=== PATIENT | female | born 1990 | race Caucasian/White ===

== ENCOUNTER 2018-03-22 08:16 | Day surgery (SDC) | payer OTHER ==
[~2018-03-22 08:16] MED LIST: HYDROmorphone 2 MG/ML VIAL IV; IOHEXOL 300 MG/ML 100ML VIAL.; LIDOCAINE 1% PF 2 ML VIAL. ID; SURGICEL HEMOSTAT 4X8 EACH.; fentaNYL PF VIAL 100 MCG/2 ML VIAL IV
[2018-03-22] MEDS: IV RINGERS,LACTATED 1000ML 1,000 ML IV (09:09)
[2018-03-22 09:25] LABS: NEG OBC UR NEG; POS OBC UR POS; U PREG PATIENT NEGATIVE (NEG)
[2018-03-22] MEDS ORDERED: FAMOTIDINE 20 MG/2 ML VIAL (09:54)
[2018-03-22] MEDS ORDERED: DEXAMETHASONE SOD PHOS 20 MG/5 ML VIAL. (09:54)
[2018-03-22] MEDS ORDERED: PROPOFOL 20 ML IV (09:54)
[2018-03-22] MEDS ORDERED: ONDANSETRON PF 4 MG/2 ML VIAL. (09:54)
[2018-03-22] MEDS ORDERED: LIDOCAINE 2% PF Vial for OR 5 ML VIAL. (09:54)
[2018-03-22] MEDS ORDERED: fentaNYL PF VIAL 100 MCG/2 ML VIAL (09:55)
[2018-03-22] MEDS ORDERED: MIDAZOLAM HCL/PF 2 MG/2 ML VIAL. (09:55)
[2018-03-22] MEDS ORDERED: ROCURONIUM 50 MG/5 ML VIAL. (09:55)
[2018-03-22] MEDS: BUPIVACAINE-EPI 0.25%-1:200000 50 ML VIAL. (10:44)
[2018-03-22] MEDS ORDERED: NEOSTIGMINE METHYLSULFATE 5 MG/5 ML SYRINGE. (11:08)
[2018-03-22] MEDS ORDERED: GLYCOPYRROLATE 1 MG/5 ML VIAL. (11:08)
[2018-03-22] MEDS ORDERED: KETOROLAC 30 MG/ML INJ FOR OR. INJ (11:08)
[2018-03-22] MEDS: PROCHLORPERAZINE 10 MG/2 ML VIAL. IV ×2 (11:32→11:42)
[2018-03-22] MEDS: fentaNYL PF VIAL 100 MCG/2 ML VIAL IV ×2 (11:32→11:42)
[2018-03-22 11:37] LABS: POC GLUCOSE 134 mg/dL (70-99)
[2018-03-22] MEDS: MORPHINE SULFATE 4 MG/ML DISP.SYRIN. IV ×4 (11:53→12:40)
[2018-03-22] MEDS: oxyCODONE/APAP 5/325 1 TAB TABLET PO (12:20)
[2018-03-22] MEDS ORDERED: DESFLURANE 31 TO 60 MINUTES IH (14:12)
== END 2018-03-22 13:31 | disposition home or self-care (01) ==
LOC: SURG 08:16
DX: K81.1 Chronic cholecystitis (principal); E03.9 Hypothyroidism, unspecified; F31.9 Bipolar disorder, unspecified; F60.3 Borderline personality disorder; J45.909 Unspecified asthma, uncomplicated; E66.9 Obesity, unspecified; Z68.42 Body mass index [BMI] 45.0-49.9, adult; E11.9 Type 2 diabetes mellitus without complications; F43.10 Post-traumatic stress disorder, unspecified; F41.9 Anxiety disorder, unspecified; Z79.899 Other long term (current) drug therapy; Z98.890 Other specified postprocedural states; Z83.42 Family history of familial hypercholesterolemia; Z88.2 Allergy status to sulfonamides; Z88.0 Allergy status to penicillin; Z88.1 Allergy status to other antibiotic agents; Z88.8 Allergy status to other drugs, medicaments and biological substances; Z87.19 Personal history of other diseases of the digestive system; Z79.84 Long term (current) use of oral hypoglycemic drugs; Z87.891 Personal history of nicotine dependence
CPT/HCPCS: 47562; 81025; 82962; A7015; J0780; J1100; J1885; J1956; J2250; J2270; J2405; J2704; J2710; J3010; J3490; J7030; Q9967; S0028

== ENCOUNTER 2019-11-07 05:53 | Day surgery (SDC) | payer OTHER ==
[~2019-11-07] VITALS: Ht 170.2 cm; Wt 100.0 kg
[~2019-11-07 05:53] MED LIST changes: +ALBU2.5V8 INH; +ARIP300S IM; +CIME200T6 PO; +EPIPEN 2-P0.3 MG/0.3 IJ; +ESCITALOPRAM OX10 MG PO; +ETON1VAG VG; +FAMO40TA57 PO; +HYDR25TA PO; -HYDROmorphone 2 MG/ML VIAL IV; +IBUP-1060 PO; -IOHEXOL 300 MG/ML 100ML VIAL.; +LEVO50TA PO; -LIDOCAINE 1% PF 2 ML VIAL. ID; +METH-38 PO; +MIRT30TA2 PO; +NORG1TAB6 PO; +OXCA600T3 PO; +OXYC1TAB15 PO; +QUET100T4 PO; +RANI-376 PO; -SURGICEL HEMOSTAT 4X8 EACH.; +TOPI100T42 PO; -fentaNYL PF VIAL 100 MCG/2 ML VIAL IV
[2019-11-07] MEDS ORDERED: LIDOCAINE 2% PF 5 ML VIAL. ONE (06:29)
[2019-11-07] MEDS ORDERED: PROPOFOL 20 ML IV ONE (06:29)
[2019-11-07] MEDS ORDERED: ONDANSETRON PF 4 MG/2 ML VIAL. ONE (06:30)
[2019-11-07] MEDS ORDERED: ROCURONIUM 50 MG/5 ML VIAL. ONE ×2 (06:30→07:37)
[2019-11-07] MEDS ORDERED: DEXAMETHASONE SOD PHOS 4 MG/ML VIAL ONE (06:30)
[2019-11-07] MEDS ORDERED: fentaNYL PF VIAL 100 MCG/2 ML VIAL IV PRN ×2 (07:00)
[2019-11-07] MEDS ORDERED: HYDROmorphone 2 MG/ML VIAL IV PRN (07:00)
[2019-11-07] MEDS ORDERED: ceFAZolin 2GM PREMIX 2 GM/50 ML BAG IV ONE (07:00)
[2019-11-07] MEDS ORDERED: PROCHLORPERAZINE 10 MG/2 ML VIAL. IV PRN (07:00)
[2019-11-07] MEDS ORDERED: ONDANSETRON PF 4 MG/2 ML VIAL. IV PRN (07:00)
[2019-11-07] MEDS ORDERED: IV RINGERS,LACTATED 1000ML 1,000 ML IV SCH (07:00)
[2019-11-07] MEDS ORDERED: SURGICEL HEMOSTAT 4X8 EACH. ONE (07:33)
[2019-11-07] MEDS ORDERED: fentaNYL PF VIAL 250 MCG/5 ML VIAL ONE (07:38)
[2019-11-07] MEDS ORDERED: MIDAZOLAM HCL/PF 2 MG/2 ML VIAL. ONE (07:38)
[2019-11-07] MEDS ORDERED: BUPIVACAINE-EPI 0.25%-1:200000 MPF 30 ML VIAL. INJ ONE (08:00)
[2019-11-07] MEDS ORDERED: NEOSTIGMINE METHYLSULFATE 5 MG/5 ML SYRINGE. ONE (08:43)
[2019-11-07] MEDS ORDERED: GLYCOPYRROLATE 1 MG/5 ML VIAL. ONE (08:43)
--- NOTE | 2019-11-07 09:00 | PDOC ---
BRIEF OPERATIVE NOTE Date: Nov 07, 2019 Pre-Op Diagnosis LANDON Cyst Post-Op Diagnosis Same Procedure Performed [facility] Cystectomy Surgeon Dr. Duenas Anesthesia Type: General Blood Loss 5 ml Specimens Obtained LANDON cyst wall Findings LANDON cyst 5 cm size, nml uterus, nml Left fallopian tube Complications none Operative Note see dictation JOSUÉ DUENAS Jr, MD Nov 07, 2019 09:00
--- NOTE | 2019-11-07 09:02 | DISCH ---
DISCHARGE INSTRUCTIONS Condition on Discharge Condition on Discharge: Stable Activity After Discharge Activity Instructions for Disc: Activity as tolerated Lifting Instructions after Dis: No heavy lifting Driving Instructions after Dis: Do not drive today Diet after Discharge Diet after Discharge: Regular Contacting the DRLeo after DC Call your doctor for: Concerns you may have Follow-Up Follow up with: Dr. Duenas in 2 wks JOSUÉ DUENAS Jr, MD Nov 07, 2019 09:02
[2019-11-07] MEDS ORDERED: OXYC1TAB15 PO (09:09)
[2019-11-07] MEDS ORDERED: oxyCODONE/APAP 5/325 1 TAB TABLET PO ONE (09:15)
[2019-11-07] MEDS: MORPHINE SULFATE 2 MG/ML VIAL. IV PRN ×2 (09:20→09:29)
--- NOTE | 2019-11-07 09:30 | OP ---
DATE OF SURGERY: 11/07/2019 PREOPERATIVE DIAGNOSIS: Left ovarian cyst. POSTOPERATIVE DIAGNOSIS: Left ovarian cyst. PROCEDURE: Laparoscopic left ovarian cystectomy. SURGEON: Vipul Duenas MD ANESTHESIA: GETA. ESTIMATED BLOOD LOSS: 5 mL. COMPLICATIONS: None. FINDINGS: Left ovarian cyst of 5 cm size, normal uterus, normal left fallopian tube. SUMMARY: A 29-year-old female with chronic pelvic pain, left ovarian cyst requiring laparoscopic left ovarian cystectomy. She was counseled on risks, benefits and expectations and voiced clear understanding to proceed. DESCRIPTION OF PROCEDURE: The patient was taken to surgery suite and placed in dorsal lithotomy position. She was prepped with Betadine solution for vaginal prep and ChloraPrep for abdominal prep. After adequate anesthesia, bivalve speculum was placed vaginally. Anterior lip of the cervix was grasped with single tooth tenaculum. Uterine acorn manipulator was then placed. The bivalve speculum was removed. Attention was now placed on abdomen. Small transverse skin incision was made just below the umbilicus with the scalpel. The Veress needle was then placed through the infraumbilical incision site. The abdomen was allowed to insufflate up to 1-1/2 liters CO2 gas. The Veress needle was then removed, 5 mm trocar was placed. Scope was positioned. The uterus was normal size. Left fallopian tube was normal. Left ovary demonstrated 5 cm cyst. Two additional incisions made in left lower quadrant, through which a 5 mm trocar and an 11 mm trocar was placed. With the aid of [place] graspers and the EndoShears, the left ovarian cyst was then incised and the clear fluid drained with suction irrigation. The portion of the left ovarian cyst wall was excised with EndoShears. The remaining ovarian cyst wall was fulgurated with cautery. The area was hemostatic and verified with suction irrigation. The cul-de-sac was irrigated with normal saline. A small amount of normal saline was left in posterior cul-de-sac. The trocars were then removed under direct visualization. The abdomen was allowed to deflate as much as possible with mechanical manipulation. The 11 mm port site was closed at the fascial layer using 2-0 Vicryl suture in a [id number] manner. The three skin incisions were closed at the skin level using 4-0 Vicryl suture in subcuticular manner. A 0.25% Marcaine with epinephrine was injected at each incision site. The uterine acorn manipulator and single tooth tenaculum were removed. The patient tolerated the procedure well and was taken to recovery room in stable condition. Sponge and needle count correct x 3. VIPUL DUENAS MD DR: EROS/carmen JOB#: [id number] / [id number]
[2019-11-07 09:55] VITALS: BP 113/61
--- NOTE | 2019-11-08 19:07 | PATHOLOGY ---
[facility] Accession Number: [id number] . 01 Material submitted: . ovary - LEFT OVARIAN CYST WALL. Modifiers: left, wall . 01 Clinical history: . Left ovarian cyst. . 02 Diagnosis: Ovarian tissue, left ovarian cyst wall: - Focally hemorrhagic luteinized cyst. (JPM:net application architect; 11/08/2019) R 11/08/2019 1608 Local . 02 Comment: There is no evidence of malignancy. (JPM:net application architect; 11/08/2019) . 02 Electronically signed: . Rusty Coffman MD, Pathologist NPI- [id number] . 01 Gross description: . Received in formalin labeled "Maria A Avila, left ovarian cyst" are multiple fragments of syed-white cyst wall measuring in aggregate 3.3 x 2.1 x 0.5 cm. The cyst wall measures 0.2 cm in thickness. No papillary excrescences are identified. Uninvolved ovarian parenchyma is not present. The specimen is entirely submitted in cassettes A1-A2. ([facility]; 11/07/2019) [facility] 11/07/2019 1746 Local . 02 Pathologist provided ICD-10: N83.12 . 02 CPT . 709739 Specimen Comment: A courtesy copy of this report has been sent to [phone] Specimen Comment: [id number] Specimen Comment: Report sent to and Performed at: 01 [facility] [address], [place] [id number] MD Juan R Lynne MD Phone: [phone] Performed at: 02 [facility] [address] [place], [place] [id number] MD Rusty Coffman MD Phone: [phone]
== END 2019-11-07 10:15 | disposition home or self-care (01) ==
LOC: SURG 05:53
PROVIDERS: ATTEND Obstetrics & Gynecology
DX: N83.202 Unspecified ovarian cyst, left side (principal); N83.02 Follicular cyst of left ovary; G43.909 Migraine, unspecified, not intractable, without status migrainosus; J45.909 Unspecified asthma, uncomplicated; F31.9 Bipolar disorder, unspecified; E66.8 Other obesity; Z68.34 Body mass index [BMI] 34.0-34.9, adult; Z79.899 Other long term (current) drug therapy; Z90.721 Acquired absence of ovaries, unilateral
CPT/HCPCS: 58662; 82962; A7015; J0696; J1100; J2001; J2250; J2270; J2405; J2704; J2710; J3010; J3490; J7030; J7120; 88305

== ENCOUNTER → 2019-11-14 | Outpatient (CLI) | payer OTHER ==
[2019-11-07 09:55] VITALS: BP 113/61
--- NOTE | 2019-11-14 08:51 | KCIC ---
BRAIN W/O CONTRAST Date: 11/14/2019 8:00 AM Indication: Migraines, staring spells Comparison: None. Technique: Multiplanar multisequence MRI of the brain was performed without intravenous contrast using the standard protocol. Findings: No acute infarct. No acute or chronic hemorrhage. The ventricles are normal in size and configuration without hydrocephalus. Mild scattered FLAIR hyperintensities in the subcortical and periventricular deep white matter. Hippocampi are normal in signal and morphology. No hogan matter heterotopia or cortical dysplasia. No evidence of arterial venous malformation or cavernoma. The scalp and calvarium are normal. Partial empty sella. No Chiari malformation. The visualized upper cervical spine is normal. The visualized orbits and globes are normal. The visualized paranasal sinuses are clear. The mastoid air cells are clear. Normal flow voids within the vertebral, basilar, and internal carotid arteries indicating patency. IMPRESSION: 1. No acute infarct, hemorrhage, mass, or hydrocephalus. 2. Mild scattered FLAIR hyperintensities in the subcortical and periventricular deep white matter, a nonspecific finding which can be seen with chronic small vessel ischemic disease, sequela of chronic migraines, demyelinating disease, drug toxicity, prior infection (Lyme disease), prior injury, or vasculitis. Electronically signed by: Shawn Mars MD (11/14/2019 8:48 AM) [facility]
== END | disposition home or self-care (01) ==
LOC: KCIC MRI 07:40
PROVIDERS: ATTEND Psychiatry & Neurology Neurology
DX: G43.109 Migraine with aura, not intractable, without status migrainosus (principal); R40.4 Transient alteration of awareness; Z90.49 Acquired absence of other specified parts of digestive tract
CPT/HCPCS: 70551

== ENCOUNTER 2020-09-15 21:10 | Emergency (ER) | payer OTHER ==
[~2020-09-15] VITALS: Ht 170.2 cm; Wt 77.3 kg
[2020-09-15] MEDS ORDERED: IV NORMAL SALINE 1000ML BAG 1,000 ML IV SCH (21:12)
[2020-09-15 21:27] LABS: BASO % 1 % (0-3); EOS # 0.1 x10^3/uL (0.0-0.7); EOS % 2 % (0-3); HEMOGLOBIN 12.8 g/dL (12.0-15.5); LYMPH # 2.8 x10^3/uL (1.0-4.8); LYMPH % 38 % (24-48); MEAN CORPUSCULAR HEMOGLOBIN 32 pg (25-35); MEAN CORPUSCULAR HGB CONC 34 g/dL (31-37); MEAN CORPUSCULAR VOLUME 96 fL (79-100); MONO # 0.7 x10^3/uL (0.0-1.1); MONO % 10 % (0-9); NEUT # 3.6 x10^3/uL (1.8-7.7); NEUT % 50 % (31-73); PLATELET COUNT 312 x10^3/uL (140-400); RED BLOOD COUNT 3.95 x10^6/uL (3.50-5.40); RED CELL DISTRIBUTION WIDTH 13.3 % (11.5-14.5); WHITE BLOOD COUNT 7.2 x10^3/uL (4.0-11.0)
--- NOTE | 2020-09-15 21:33 | PHYS DOC ---
General Adult EDM: Chief Complaint: ABDOMINAL PAIN HPI: HPI: Patient is a 30 year old female who presents with the last 3 or 4 days with sternal, epigastric pain, sharp shooting mid lower abdominal pain that radiates to her bilateral lower back and bilateral side pain with movement. Currently rates her pain 8 out of 10. States she has been vomiting today x5. Patient is taking no medications for symptoms. She has a history of ovarian cyst, biliary dyskinesia, gastric bypass, DM II. Review of Systems: Review of Systems: Constitutional: Denies fever or chills. [] Eyes: Denies change in visual acuity. [] HENT: Denies nasal congestion or sore throat. [] Respiratory: Denies cough or shortness of breath. [] Cardiovascular: + Sternal chest pain or denies edema. [] GI: +Epigastric and lower mid abdominal pain, +nausea, +vomiting, denies bloody stools or diarrhea. [] : Denies dysuria. [] Musculoskeletal: +Bilateral lower back pain or denies joint pain. [] Integument: Denies rash. [] Neurologic: Denies headache, focal weakness or sensory changes. [] Endocrine: Denies polyuria or polydipsia. [] Lymphatic: Denies swollen glands. [] Psychiatric: Denies depression or anxiety. [] Heart Score: HEART Score for Chest Pain: HEART Score for Chest Pain Response (Comments) Value History Slighlty/Non-Suspicious 0 ECG Normal 0 Age < 45 0 Risk Factors No Risk Factors 0 Troponin < Normal Limit 0 Total 0 Risk Factors: Risk Factors: DM, Current or recent (<one month) smoker, HTN, HLP, family history of CAD, obesity. Risk Scores: Score 0 - 3: 2.5% MACE over next 6 weeks - Discharge Home Score 4 - 6: 20.3% MACE over next 6 weeks - Admit for Clinical Observation Score 7 - 10: 72.7% MACE over next 6 weeks - Early Invasive Strategies Current Medications: Current Medications Medications (Trade) Dose Ordered Sig/Colleen Start Time Stop Time Status Last Admin Dose Admin Famotidine (Pepcid Vial) 20 mg 1X ONCE 09/15/20 21:30 09/15/20 21:31 UNV Fentanyl Citrate (Fentanyl 2ml Vial) 50 mcg 1X ONCE 09/15/20 21:30 10/27/20 21:31 UNV Ondansetron HCl (Zofran) 4 mg 1X ONCE 09/15/20 21:30 09/15/20 21:31 UNV Sodium Chloride 1,000 ml @ 1,000 mls/hr Q1H 09/15/20 21:12 09/15/20 22:11 09/15/20 21:24 1,000 MLS/HR Allergies: Allergies: Allergies Coded Allergies Type Severity Reaction Last Updated Verified coconut Allergy Severe Shortness of Air 11/07/19 Yes mushroom Allergy Severe Shortness of Air 11/07/19 Yes Sulfa (Sulfonamide Antibiotics) Allergy Intermediate Hives 11/07/19 Yes yellow dye Allergy Intermediate Rash 11/07/19 Yes Uncoded Allergies Type Severity Reaction Last Updated Verified SOME BBQ SAUCES Allergy Severe Anaphylaxis 11/07/19 Physical Exam: PE: Constitutional: Well developed, well nourished, no acute distress, non-toxic appearance. [] HENT: Normocephalic, atraumatic, bilateral external ears normal, oropharynx moist, no oral exudates, nose normal. [] Eyes: PERRLA, EOMI, conjunctiva normal, no discharge. [] Neck: Normal range of motion, no tenderness, supple, no stridor. [] Cardiovascular:Heart rate regular rhythm, no murmur [] Lungs & Thorax: Bilateral breath sounds clear to auscultation [] Abdomen: Bowel sounds normal, soft, low mid tenderness, no masses, no pulsatile masses. [] Skin: Warm, dry, no erythema, no rash. [] Back: No tenderness, no CVA tenderness. [] Extremities: No tenderness, no cyanosis, no clubbing, ROM intact, no edema. [] Neurologic: Alert and oriented X 3, normal motor function, normal sensory function, no focal deficits noted. [] Psychologic: Affect normal, judgement normal, mood normal. [] EKG: EK and read by Dr Lanza as Sinus Rhythm and incomplete RBBB and no STEMI Radiology/Procedures: Radiology/Procedures: [] Impression: [facility] [address] [place], [place] [id number] IMAGING REPORT Signed PATIENT: JOSÉ MANUEL BARRAZA ACCOUNT: [id number] : 1990 LOCATION: ER AGE: 30 SEX: F EXAM STATUS: REG ER ORD. PHYSICIAN: JORGE WOODALL APRN REASON: epigastric, sternal pain, bilateral rib pain PROCEDURE: CHEST PA & LATERAL Study: CR CHEST PA LATERAL Indication: Epigastric, sternal and bilateral rib pain. Comparison: 07/05/2020 Findings: Unremarkable/unchanged cardiomediastinal silhouette and koko. No pneumothorax, lobar consolidation or pleural effusion. No free air seen under the diaphragm. Surgical clips project over the right and left upper quadrants. No newly seen osseous abnormality. Impression: No acute radiographic abnormality of the chest. No significant change from 07/05/2020. Electronically signed by: LEAH BUSCH MD (09/15/2020 10:53 PM) [id number] DICTATED and SIGNED BY: LEAH BUSCH MD DATE: 09/15/20 2253 [facility] [address] [place] [address] IMAGING REPORT Signed PATIENT: JOSÉ MANUEL BARRAZA ACCOUNT: [id number] : 1990 LOCATION: ER AGE: 30 SEX: F EXAM STATUS: REG ER ORD. PHYSICIAN: JORGE WOODALL APRN REASON: n/v/epigastric, lower abd pain PROCEDURE: CT ABD PELV W/ IV CONTRST ONLY Study: CT abdomen/pelvis with intravenous contrast Indication: Nausea, vomiting and epigastric/lower abdominal pain. Comparison: Most recently on 07/05/2020 Technique: Helical CT imaging performed of the abdomen and pelvis after the intravenous administration of 75 cc contrast. Sagittal and coronal reformats were obtained. One or more of the following individualized dose reduction techniques were utilized for this examination: 1. Automated exposure control 2. Adjustment of the mA and/or kV according to patient size 3. Use of iterative reconstruction technique. Findings: No newly seen abnormality at the lower chest. Hepatic steatosis with more localized fatty infiltration along the falciform ligament. Status post cholecystectomy. Mild prominence of the central biliary tree and common duct favored due to reservoir effect. Unremarkable pancreas, spleen, adrenal glands and kidneys. No hydronephrosis. Within normal limits bladder. No discrete uterine abnormality. Heterogeneous hyperdensity at the left adnexa, image 77 series 2, favored a functional cyst such as a corpus luteum. Crescentic hypoattenuation along the left margin of the uterus is favored related to the left ovary and a similar finding was present on 07/05/2020. Collectively no acute abnormality of the reproductive organs. Mild volume well-formed stool burden scattered throughout the colon. No acute abnormality of the colon or appendix. Nonobstructed small bowel. Status post antecolic Manoj-en-Y gastric bypass without complicating features. Unremarkable major vasculature. No lymphadenopathy. No significant volume free fluid or pneumoperitoneum. No newly seen abnormality of the body wall soft tissues. No acute or aggressive osseous process. Mild superior endplate height loss at T12 is no different from the prior. Impression: No acute abnormality throughout the abdomen or pelvis to account for the patient's symptoms. No significant change from 07/05/2020 with chronic observations detailed in the body the report. Electronically signed by: LEAH BUSCH MD (09/15/2020 11:13 PM) [id number] DICTATED and SIGNED BY: LEAH BUSCH MD DATE: 09/15/20 2313 Course & Med Decision Making: Course & Med Decision Making Pertinent Labs and Imaging studies reviewed. (See chart for details) See HPI. Abdomen is soft but tender at low mid abdomen. No CVA tenderness. Lungs are clear to all station all lobes. Speaks in full complete sentences. Ambulatory with a steady gait. Skin pink warm and dry. Vital signs within normal limits. She states a couple months ago she was diagnosed with costochondritis and put on Robaxin muscle relaxer and she states it does help. She denies injury or any heavy lifting. Patient denies constipation or diarrhea, shortness of breath, cough, fever, headache, dizziness, syncope, dysuria symptoms, focal weakness, vision changes, numbness or tingling. Patient states that first this abdominal pain was coming and going but now has been more constant the last couple of days. Patients blood glucose is 59 and she is given milk. Urine shows urinary tract infection. Negative . Blood work unremarkable. Chest x-ray shows no acute findings. [] Dragon Disclaimer: Dragon Disclaimer: This electronic medical record was generated, in whole or in part, using a voice recognition dictation system. Departure Departure Impression: Primary Impression: UTI (urinary tract infection) Qualified Codes: N39.0 - Urinary tract infection, site not specified Disposition: 01 DC HOME SELF CARE/HOMELESS Condition: STABLE Referrals: REENA JOSHI MD (PCP) Patient Instructions: Urinary Tract Infection Additional Instructions: Take medication as prescribed. Drink plenty of fluids. Follow-up with your primary care provider soon as possible. Scripts Hydrocodone/Apap 5-325 (NORCO 5-325 TABLET) 1 Each Tablet 1 TAB PO PRN Q6HRS PRN for PAIN, #8 TAB 0 Refills Prov: JORGE WOODALL PROJECTION PRINTER 09/15/20 Ondansetron (ONDANSETRON ODT) 4 Mg Tab.rapdis 1 TAB PO PRN Q6-8HRS, #16 TAB Prov: JORGE WOODALL PROJECTION PRINTER 09/15/20 Cephalexin (KEFLEX) 500 Mg Capsule 1 CAP PO BID for 7 Days, #14 CAP 0 Refills Prov: JORGE WOODALL PROJECTION PRINTER 09/15/20 JORGE WOODALL APRN Sep 15, 2020 21:33
[2020-09-15 21:35] LABS: CALCIUM 9.2 mg/dL (8.5-10.1); GFR 64.3; PROTHROMBIN TIME PATIENT 13.3 SEC (11.7-14.0)
[2020-09-15 21:40] LABS: ALBUMIN 3.4 g/dL (3.4-5.0); TOTAL BILIRUBIN 0.2 mg/dL (0.2-1.0); TOTAL PROTEIN 6.7 g/dL (6.4-8.2)
[2020-09-15] MEDS ORDERED: fentaNYL PF VIAL 100 MCG/2 ML VIAL IVP ONE ×2 (22:00→23:30)
[2020-09-15] MEDS ORDERED: ONDANSETRON PF 4 MG/2 ML VIAL. IVP ONE (22:00)
[2020-09-15] MEDS ORDERED: FAMOTIDINE 20 MG/2 ML VIAL IVP ONE (22:00)
[2020-09-15 22:28] LABS: BILIRUBIN,URINE SMALL (NEG); CLARITY,URINE CLOUDY; COLOR,URINE YELLOW; NITRITE,URINE NEGATIVE (NEG); PH,URINE 5.5 (<5.0-8.0); PROTEIN,URINE NEGATIVE (NEG-TRACE)
[2020-09-15 22:30] LABS: BACTERIA,URINE MANY /HPF (0-FEW)
[2020-09-15 22:31] LABS: RBC,URINE OCC /HPF (0-2); WBC,URINE 20-40 /HPF (0-4)
[2020-09-15 22:33] LABS: BARBITURATES NEG (NEG); BENZODIAZEPINES NEG (NEG); CANNABINOIDS NEG (NEG); COCAINE NEG (NEG); METHADONE NEG (NEG); OPIATES POS (NEG); PHENCYCLIDINE NEG (NEG)
[2020-09-15 22:35] LABS: AMPHETAMINE/METHAMPHETAMINE NEG (NEG)
[2020-09-15] MEDS ORDERED: IOHEXOL 300 MG/ML 100ML VIAL. ONE (22:36)
[2020-09-15] MEDS ORDERED: CONTRAST GIVEN. MC PRN (22:45)
--- NOTE | 2020-09-15 22:56 | RAD ---
Study: CR CHEST PA LATERAL Indication: Epigastric, sternal and bilateral rib pain. Comparison: 07/05/2020 Findings: Unremarkable/unchanged cardiomediastinal silhouette and koko. No pneumothorax, lobar consolidation or pleural effusion. No free air seen under the diaphragm. Surgical clips project over the right and left upper quadrants. No newly seen osseous abnormality. Impression: No acute radiographic abnormality of the chest. No significant change from 07/05/2020. Electronically signed by: LEAH BUSCH MD (09/15/2020 10:53 PM) [id number]
[2020-09-15] MEDS ORDERED: cefTRIAXone IV Push 1 GM VIAL. IVP ONE (23:00)
[2020-09-15] MEDS ORDERED: IOHEXOL 300 MG/ML 100ML VIAL. IV ONE (23:00)
[2020-09-15] MEDS ORDERED: CEPH-264 PO (23:09)
[2020-09-15] MEDS ORDERED: ONDA4TAB12 PO (23:09)
[2020-09-15 23:13] VITALS: BP 114/56
--- NOTE | 2020-09-15 23:16 | RAD ---
Study: CT abdomen/pelvis with intravenous contrast Indication: Nausea, vomiting and epigastric/lower abdominal pain. Comparison: Most recently on 07/05/2020 Technique: Helical CT imaging performed of the abdomen and pelvis after the intravenous administration of 75 cc contrast. Sagittal and coronal reformats were obtained. One or more of the following individualized dose reduction techniques were utilized for this examination: 1. Automated exposure control 2. Adjustment of the mA and/or kV according to patient size 3. Use of iterative reconstruction technique. Findings: No newly seen abnormality at the lower chest. Hepatic steatosis with more localized fatty infiltration along the falciform ligament. Status post cholecystectomy. Mild prominence of the central biliary tree and common duct favored due to reservoir effect. Unremarkable pancreas, spleen, adrenal glands and kidneys. No hydronephrosis. Within normal limits bladder. No discrete uterine abnormality. Heterogeneous hyperdensity at the left adnexa, image 77 series 2, favored a functional cyst such as a corpus luteum. Crescentic hypoattenuation along the left margin of the uterus is favored related to the left ovary and a similar finding was present on 07/05/2020. Collectively no acute abnormality of the reproductive organs. Mild volume well-formed stool burden scattered throughout the colon. No acute abnormality of the colon or appendix. Nonobstructed small bowel. Status post antecolic Manoj-en-Y gastric bypass without complicating features. Unremarkable major vasculature. No lymphadenopathy. No significant volume free fluid or pneumoperitoneum. No newly seen abnormality of the body wall soft tissues. No acute or aggressive osseous process. Mild superior endplate height loss at T12 is no different from the prior. Impression: No acute abnormality throughout the abdomen or pelvis to account for the patient's symptoms. No significant change from 07/05/2020 with chronic observations detailed in the body the report. Electronically signed by: LEAH BUSCH MD (09/15/2020 11:13 PM) [id number]
[2020-09-15] MEDS ORDERED: HYDR-3164 PO (23:17)
--- NOTE | 2020-09-16 09:34 | EKG ---
[facility] [address] [place] [address] Test Date: 2020-09-15 Test Time: 21:54:49 Pat Name: JOSÉ MANUEL BARRAZA Department: Room: Gender: F Sales Correspondent: : 1990 Requested By: JORGE WOODALL Order Number: [id number] Reading MD: Measurements Intervals [place] Rate: 81 P: 52 [place]: 124 QRS: 19 QRSD: 98 T: 26 QT: 372 QTc: 438 Interpretive Statements SINUS RHYTHM INCOMPLETE RIGHT BUNDLE BRANCH BLOCK QRS(T) CONTOUR ABNORMALITY CONSIDER ANTEROLATERAL MYOCARDIAL DAMAGE POSSIBLY ABNORMAL ECG RI6.01 No previous ECG available for comparison
== END 2020-09-15 23:28 | disposition home or self-care (01) ==
LOC: ER 21:10
DX: N39.0 Urinary tract infection, site not specified (principal); Z88.2 Allergy status to sulfonamides; Z91.018 Allergy to other foods
CPT/HCPCS: 36415; 71046; 74177; 80053; 80307; 81001; 81025; 82962; 83690; 84484; 85025; 85610; 87086; 93005; 96361; 96374; 96375; 99285; J0696; J2405; J3010; J3490; J7030; Q9967

== ENCOUNTER 2020-09-28 03:49 | Emergency (ER) | payer OTHER ==
[~2020-09-28] VITALS: Ht 170.2 cm; Wt 79.5 kg
[~2020-09-28 03:49] MED LIST changes: +CEPH-264 PO; +HYDR-3164 PO; +ONDA4TAB12 PO
--- NOTE | 2020-09-28 03:58 | PHYS DOC ---
Past Medical History Past Medical History: Diabetes-Type II, Other Additional Past Medical Histor: costchondritis, PCOS, PTSD Past Surgical History: Gastric Bypass Additional Past Surgical Histo: ovarian cystectomy x2 Smoking Status: Current Every Day Smoker Alcohol Use: None General Adult EDM: Chief Complaint: SEIZURE HPI: HPI: Patient is a 30 year old female who arrives via EMS with a chief complaint of seizures. Patient states she has got a history of absence seizure's and had about 4 those prior to arrival. Patient states she woke up and then had for staring spells that prompted her to call the ambulance. According EMS the spells lasted a minute and a half. Patient is alert and oriented x4 and denies any episodes for the paramedics. Patient denies any recent illnesses alt leandro she was here a week ago for urinary tract infection. Patient complains of generalized pain but no difficulty breathing. Review of Systems: Review of Systems: Constitutional: Denies fever or chills. [] Eyes: Denies change in visual acuity. [] HENT: Denies nasal congestion or sore throat. [] Respiratory: Denies cough or shortness of breath. [] Cardiovascular: Denies chest pain or edema. [] GI: Denies abdominal pain, nausea, vomiting, bloody stools or diarrhea. [] : Denies dysuria. [] Musculoskeletal: Complains of diffuse myalgias Integument: Denies rash. [] Neurologic: Denies headache, focal weakness or sensory changes. [] Endocrine: Denies polyuria or polydipsia. [] Lymphatic: Denies swollen glands. [] Psychiatric: Denies depression or anxiety. [] Heart Score: Risk Factors: Risk Factors: DM, Current or recent (<one month) smoker, HTN, HLP, family history of CAD, obesity. Risk Scores: Score 0 - 3: 2.5% MACE over next 6 weeks - Discharge Home Score 4 - 6: 20.3% MACE over next 6 weeks - Admit for Clinical Observation Score 7 - 10: 72.7% MACE over next 6 weeks - Early Invasive Strategies Allergies: Allergies: Allergies Coded Allergies Type Severity Reaction Last Updated Verified coconut Allergy Severe Shortness of Air 11/07/19 Yes mushroom Allergy Severe Shortness of Air 11/07/19 Yes Sulfa (Sulfonamide Antibiotics) Allergy Intermediate Hives 11/07/19 Yes yellow dye Allergy Intermediate Rash 11/07/19 Yes Uncoded Allergies Type Severity Reaction Last Updated Verified SOME BBQ SAUCES Allergy Severe Anaphylaxis 11/07/19 Physical Exam: PE: Constitutional: Well developed, well nourished, no acute distress, non-toxic appearance. [] HENT: Normocephalic, atraumatic, bilateral external ears normal, no trismus nose normal. [] Eyes: PERRLA, EOMI, conjunctiva normal, no discharge. [] Neck: Normal range of motion, no tenderness, supple, no stridor. [] Cardiovascular:Heart rate regular rhythm, no murmur [] Lungs & Thorax: Bilateral breath sounds clear to auscultation [] Abdomen: Bowel sounds normal, soft, no tenderness, no masses, no pulsatile masses. [] Skin: Warm, dry, no erythema, no rash. [] Back: No tenderness, no CVA tenderness. [] Extremities: No tenderness, no cyanosis, no clubbing, ROM intact, no edema. [] Neurologic: Alert and oriented X 3, normal motor function, normal sensory function, no focal deficits noted. [] Psychologic: Affect normal, judgement normal, mood normal. [] Current Patient Data: Labs: Laboratory Tests Test 09/28/20 04:04 White Blood Count 5.7 x10^3/uL Red Blood Count 3.29 x10^6/uL Hemoglobin 10.7 g/dL Hematocrit 31.6 % Mean Corpuscular Volume 96 fL Mean Corpuscular Hemoglobin 33 pg Mean Corpuscular Hemoglobin Concent 34 g/dL Red Cell Distribution Width 13.7 % Platelet Count 306 x10^3/uL Neutrophils (%) (Auto) 47 % Lymphocytes (%) (Auto) 41 % Monocytes (%) (Auto) 8 % Eosinophils (%) (Auto) 4 % Basophils (%) (Auto) 0 % Neutrophils # (Auto) 2.7 x10^3/uL Lymphocytes # (Auto) 2.3 x10^3/uL Monocytes # (Auto) 0.5 x10^3/uL Eosinophils # (Auto) 0.2 x10^3/uL Basophils # (Auto) 0.0 x10^3/uL Maternal Serum HCG Beta Subunit 1 mIU/mL Sodium Level 144 mmol/L Potassium Level 3.7 mmol/L Chloride Level 111 mmol/L Carbon Dioxide Level 25 mmol/L Anion Gap 8 Blood Urea Nitrogen 16 mg/dL Creatinine 0.8 mg/dL Estimated GFR (Cockcroft-Gault) 83.1 Glucose Level 88 mg/dL Calcium Level 8.2 mg/dL Vital Signs: Vital Signs Date Time Temp Pulse Resp B/P (MAP) Pulse Ox O2 Delivery O2 Flow Rate FiO2 09/28/20 03:50 98.8 72 20 106/53 (70) 99 Room Air 98.8 EKG: EKG: [] Radiology/Procedures: Radiology/Procedures: [] Course & Med Decision Making: Course & Med Decision Making Pertinent Labs and Imaging studies reviewed. (See chart for details) [] Called into the room for evaluation patient, she was having some fluttering of the eyelids. This lasted just a few seconds. I had several conversations with the patient and her about what medicine she takes she was unable to give it to me other that starts with a p and has not phenytoin phenobarbital. She says her doctors not able to fill her medicines. I instructed her that I will give referral to neurologist for further evaluation and prescribing of her medicines. I do think that she is to be admitted to the hospital this time medically stable for discharge. Dragon Disclaimer: Dragon Disclaimer: This electronic medical record was generated, in whole or in part, using a voice recognition dictation system. Departure Departure Impression: Primary Impression: Seizure Disposition: 01 DC HOME SELF CARE/HOMELESS Referrals: REENA JOSHI MD (PCP) GINA MILLARD MD 2-3 days Patient Instructions: Seizure Disorder, Child, Generalized Tonic-Clonic Additional Instructions: EMERGENCY DEPARTMENT GENERAL DISCHARGE INSTRUCTIONS THANK YOU for coming to [facility] Emergency Department (ED) today and trusting us with your care. We trust that you had a positive experience in our Emergency Department. If you wish to speak to the department Management you can contact the engineering department chair at . YOUR FOLLOW UP INSTRUCTIONS ARE FOLLOWS: Do you have a private doctor? If you do not have a private doctor, please ask for a resource list of physicians or clinics that may be able to assist you with follow up care. The Emergency Physician has interpreted your x-rays. The X-ray specialist will also review them. If there is a change in the findings you will be notified in 48 hours when at all possible. A lab test or lab culture may have been done, your results will be reviewed and you will be notified if you need a change in treatment. ADDITIONAL INSTRUCTIONS AND INFORMATION Your care today has been supervised by a physician who is specially trained in emergency care. Many problems require more than one evaluation for a complete diagnosis and treatment. We recommend that you schedule your follow up appointment as recommended to ensure complete treatment of your illness or injury. If you are unable to obtain follow up care and continue to have a problem, or if your condition worsens we recommend that you return to the ED. We are not able to safely determine your condition over the phone nor are we able to give sound medical advice over the phone. For these safety reasons, if you call for medical advice we will ask you to come to the ED for further evaluation If you have any questions regarding these discharge instructions please call the ED at . SAFETY INFORMATION In the interest of safety, wellness, and injury prevention; we encourage you to wear your seatbelt, if you smoke; quit smoking, and we encourage your family to use protective helmet for bicycling and other sporting events that present an increased risk for head injury. IF YOUR SYMPTOMS WORSEN OR NEW SYMPTOMS DEVELOP, OR YOU HAVE CONCERNS ABOUT YOUR CONDITION; OR IF YOUR CONDITION WORSENS WHILE YOU ARE WAITING FOR YOUR FOLLOW UP APPOINTMENT; EITHER CONTACT YOUR PRIMARY CARE DOCTOR, THE PHYSICIAN WHOSE NAME AND NUMBER YOU WERE GIVEN, OR RETURN TO THE ED IMMEDIATELY. DANITA ZAYAS MD Sep 28, 2020 03:57
[2020-09-28 04:14] LABS: BASO % 0 % (0-3); EOS # 0.2 x10^3/uL (0.0-0.7); EOS % 4 % (0-3); HEMATOCRIT 31.6 % (36.0-47.0); HEMOGLOBIN 10.7 g/dL (12.0-15.5); LYMPH # 2.3 x10^3/uL (1.0-4.8); LYMPH % 41 % (24-48); MEAN CORPUSCULAR HEMOGLOBIN 33 pg (25-35); MEAN CORPUSCULAR HGB CONC 34 g/dL (31-37); MEAN CORPUSCULAR VOLUME 96 fL (79-100); MONO # 0.5 x10^3/uL (0.0-1.1); MONO % 8 % (0-9); NEUT # 2.7 x10^3/uL (1.8-7.7); NEUT % 47 % (31-73); PLATELET COUNT 306 x10^3/uL (140-400); RED BLOOD COUNT 3.29 x10^6/uL (3.50-5.40); RED CELL DISTRIBUTION WIDTH 13.7 % (11.5-14.5); WHITE BLOOD COUNT 5.7 x10^3/uL (4.0-11.0)
[2020-09-28 04:30] LABS: CALCIUM 8.2 mg/dL (8.5-10.1); CREATININE 0.8 mg/dL (0.6-1.0); GFR 83.1; POTASSIUM 3.7 mmol/L (3.5-5.1)
[2020-09-28 05:45] VITALS: BP 101/55
== END 2020-09-28 05:47 | disposition home or self-care (01) ==
LOC: ER 03:49
DX: R56.9 Unspecified convulsions (principal); E11.9 Type 2 diabetes mellitus without complications; F17.200 Nicotine dependence, unspecified, uncomplicated; Z98.890 Other specified postprocedural states; Z88.2 Allergy status to sulfonamides; Z91.018 Allergy to other foods; Z91.040 Latex allergy status
CPT/HCPCS: 36415; 80048; 84702; 85025; 99285

== ENCOUNTER 2020-10-13 22:35 | Emergency (ER) | payer OTHER ==
[~2020-10-13] VITALS: Ht 170.2 cm; Wt 80.0 kg
[2020-10-13] MEDS ORDERED: HYDROcodone/APAP 5/325MG 1 TAB TABLET PO ONE (23:00)
[2020-10-13 23:16] LABS: BASO # 0.1 x10^3/uL (0.0-0.2); BASO % 1 % (0-3); EOS # 0.1 x10^3/uL (0.0-0.7); EOS % 1 % (0-3); HEMATOCRIT 34.6 % (36.0-47.0); HEMOGLOBIN 11.8 g/dL (12.0-15.5); LYMPH % 41 % (24-48); MEAN CORPUSCULAR HEMOGLOBIN 33 pg (25-35); MEAN CORPUSCULAR HGB CONC 34 g/dL (31-37); MEAN CORPUSCULAR VOLUME 95 fL (79-100); MONO # 0.9 x10^3/uL (0.0-1.1); MONO % 9 % (0-9); NEUT # 4.6 x10^3/uL (1.8-7.7); NEUT % 48 % (31-73); PLATELET COUNT 300 x10^3/uL (140-400); RED BLOOD COUNT 3.62 x10^6/uL (3.50-5.40); RED CELL DISTRIBUTION WIDTH 13.5 % (11.5-14.5); WHITE BLOOD COUNT 9.7 x10^3/uL (4.0-11.0)
[2020-10-13 23:23] LABS: CALCIUM 8.8 mg/dL (8.5-10.1); CREATININE 0.6 mg/dL (0.6-1.0); GFR 115.9; POTASSIUM 3.4 mmol/L (3.5-5.1)
[2020-10-13 23:29] LABS: ALBUMIN 3.2 g/dL (3.4-5.0); ALBUMIN/GLOBULIN RATIO 1.1 (1.0-1.7); TOTAL BILIRUBIN 0.2 mg/dL (0.2-1.0); TOTAL PROTEIN 6.1 g/dL (6.4-8.2)
[2020-10-13] MEDS ORDERED: ONDA4TAB7 PO (23:42)
[2020-10-13] MEDS ORDERED: HYDR-3164 PO (23:42)
--- NOTE | 2020-10-13 23:43 | PHYS DOC ---
Past Medical History Past Medical History: Diabetes-Type I, Seizure Additional Past Medical Histor: PCOS Past Surgical History: No Surgical History Additional Past Surgical Histo: ovarian cystectomy x2 Smoking Status: Current Every Day Smoker Alcohol Use: None General Adult EDM: Chief Complaint: SEIZURE HPI: HPI: Patient is a 30 year old male with 1 year history of seizures presents for evaluation after seizure. Approximately 1 year ago patient was diagnosed with absence seizures. She was seen by neurologist who placed her on antiepileptic. Patient states her initial antiepileptic she was allergic to in the second antilipid that she was placed on caused more seizures. Patient states she has not been on any medication since. Patient's last seizure prior to Monday night was 2 weeks ago. At that time patient states she was having seizures daily. Typical seizures patients become silent stares off last 2 to 3 minutes then resolved. Tonight significant other states patient had seizures longer than normal. The first seizure tonight lasted 4 minutes the second lasted approximately 7 minutes. Review of Systems: Review of Systems: Constitutional: Denies fever or chills. [] Eyes: Denies change in visual acuity. [] HENT: Denies nasal congestion or sore throat. [] Respiratory: Denies cough or shortness of breath. [] Cardiovascular: Denies chest pain or edema. [] GI: Denies abdominal pain, nausea, vomiting, bloody stools or diarrhea. [] : Denies dysuria. [] Musculoskeletal: Denies back pain or joint pain. [] Integument: Denies rash. [] Neurologic: Denies headache, focal weakness or sensory changes. [] Endocrine: Denies polyuria or polydipsia. [] Lymphatic: Denies swollen glands. [] Psychiatric: Denies depression or anxiety. [] Heart Score: Risk Factors: Risk Factors: DM, Current or recent (<one month) smoker, HTN, HLP, family history of CAD, obesity. Risk Scores: Score 0 - 3: 2.5% MACE over next 6 weeks - Discharge Home Score 4 - 6: 20.3% MACE over next 6 weeks - Admit for Clinical Observation Score 7 - 10: 72.7% MACE over next 6 weeks - Early Invasive Strategies Current Medications: Current Medications Medications (Trade) Dose Ordered Sig/Colleen Start Time Stop Time Status Last Admin Dose Admin Acetaminophen/ Hydrocodone Bitart (Lortab 5/325) 1 tab 1X ONCE 10/13/20 23:00 10/13/20 23:01 DC 10/13/20 22:57 1 TAB Allergies: Allergies: Allergies Coded Allergies Type Severity Reaction Last Updated Verified coconut Allergy Severe Shortness of Air 11/07/19 Yes mushroom Allergy Severe Shortness of Air 11/07/19 Yes Sulfa (Sulfonamide Antibiotics) Allergy Intermediate Hives 11/07/19 Yes yellow dye Allergy Intermediate Rash 11/07/19 Yes Uncoded Allergies Type Severity Reaction Last Updated Verified SOME BBQ SAUCES Allergy Severe Anaphylaxis 11/07/19 Physical Exam: PE: Constitutional: Well developed, well nourished, no acute distress, non-toxic appearance. [] HENT: Normocephalic, atraumatic, bilateral external ears normal, oropharynx moist, no oral exudates, nose normal. [] Eyes: PERRLA, EOMI, conjunctiva normal, no discharge. [] Neck: Normal range of motion, no tenderness, supple, no stridor. [] Cardiovascular:Heart rate regular rhythm, no murmur [] Lungs & Thorax: Bilateral breath sounds clear to auscultation [] Abdomen: Bowel sounds normal, soft, no tenderness, no masses, no pulsatile masses. [] Skin: Warm, dry, no erythema, no rash. [] Back: No tenderness, no CVA tenderness. [] Extremities: No tenderness, no cyanosis, no clubbing, ROM intact, no edema. [] Neurologic: Alert and oriented X 3, normal motor function, normal sensory function, no focal deficits noted. [] Psychologic: Affect normal, judgement normal, mood normal. [] Current Patient Data: Labs: Laboratory Tests Test 10/13/20 23:05 White Blood Count 9.7 x10^3/uL (4.0-11.0) Red Blood Count 3.62 x10^6/uL (3.50-5.40) Hemoglobin 11.8 g/dL (12.0-15.5) L Hematocrit 34.6 % (36.0-47.0) L Mean Corpuscular Volume 95 fL (79-100) Mean Corpuscular Hemoglobin 33 pg (25-35) Mean Corpuscular Hemoglobin Concent 34 g/dL (31-37) Red Cell Distribution Width 13.5 % (11.5-14.5) Platelet Count 300 x10^3/uL (140-400) Neutrophils (%) (Auto) 48 % (31-73) Lymphocytes (%) (Auto) 41 % (24-48) Monocytes (%) (Auto) 9 % (0-9) Eosinophils (%) (Auto) 1 % (0-3) Basophils (%) (Auto) 1 % (0-3) Neutrophils # (Auto) 4.6 x10^3/uL (1.8-7.7) Lymphocytes # (Auto) 4.0 x10^3/uL (1.0-4.8) Monocytes # (Auto) 0.9 x10^3/uL (0.0-1.1) Eosinophils # (Auto) 0.1 x10^3/uL (0.0-0.7) Basophils # (Auto) 0.1 x10^3/uL (0.0-0.2) Sodium Level 140 mmol/L (136-145) Potassium Level 3.4 mmol/L (3.5-5.1) L Chloride Level 106 mmol/L (98-107) Carbon Dioxide Level 26 mmol/L (21-32) Anion Gap 8 (6-14) Blood Urea Nitrogen 14 mg/dL (7-20) Creatinine 0.6 mg/dL (0.6-1.0) Estimated GFR (Cockcroft-Gault) 115.9 BUN/Creatinine Ratio 23 (6-20) H Glucose Level 98 mg/dL (70-99) Calcium Level 8.8 mg/dL (8.5-10.1) Total Bilirubin 0.2 mg/dL (0.2-1.0) Aspartate Amino Transferase (AST) 18 U/L (15-37) Alanine Aminotransferase (ALT) 30 U/L (14-59) Alkaline Phosphatase 131 U/L (46-116) H Total Protein 6.1 g/dL (6.4-8.2) L Albumin 3.2 g/dL (3.4-5.0) L Albumin/Globulin Ratio 1.1 (1.0-1.7) Laboratory Tests 10/13/20 23:05 Laboratory Tests 10/13/20 23:05 Vital Signs: Vital Signs Date Time Temp Pulse Resp B/P (MAP) Pulse Ox O2 Delivery O2 Flow Rate FiO2 10/13/20 22:57 12 Room Air 10/13/20 22:35 98.2 60 112/62 (79) 99 98.2 EKG: EKG: [] Radiology/Procedures: Radiology/Procedures: [] Course & Med Decision Making: Course & Med Decision Making Pertinent Labs and Imaging studies reviewed. (See chart for details) [] Dragon Disclaimer: Dragon Disclaimer: This electronic medical record was generated, in whole or in part, using a voice recognition dictation system. Departure Departure Impression: Primary Impression: Seizure Disposition: 01 DC HOME SELF CARE/HOMELESS Condition: STABLE Referrals: REENA JOSHI MD (PCP) Patient Instructions: Seizure, Adult Scripts Hydrocodone/Apap 5-325 (NORCO 5-325 TABLET) 1 Each Tablet 1 TAB PO BID, #14 TAB Prov: ADALID FLORES I DO 10/13/20 Ondansetron Hcl (ZOFRAN) 4 Mg Tablet 1 TAB PO Q6HRS, #20 TAB Prov: ADALID FLORES I DO 10/13/20 ADALID FLORES I DO Oct 13, 2020 23:43
[2020-10-13] MEDS ORDERED: ONDANSETRON PF 4 MG/2 ML VIAL. ONE (23:59)
[2020-10-14] MEDS ORDERED: ONDANSETRON ODT 4 MG TAB.RAPDIS. PO ONE (00:30)
[2020-10-14 00:42] VITALS: BP 94/55
--- NOTE | 2020-10-14 03:06 | EKG ---
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
== END 2020-10-14 00:59 | disposition home or self-care (01) ==
LOC: ER 22:35
DX: R56.9 Unspecified convulsions (principal); E10.9 Type 1 diabetes mellitus without complications; F17.200 Nicotine dependence, unspecified, uncomplicated; Z98.890 Other specified postprocedural states; Z88.2 Allergy status to sulfonamides; Z91.018 Allergy to other foods; Z91.040 Latex allergy status; Z88.8 Allergy status to other drugs, medicaments and biological substances
CPT/HCPCS: 36415; 80053; 85025; 93005; 99285

== ENCOUNTER 2021-01-23 20:28 | Emergency (ER) | payer OTHER ==
[~2021-01-23] VITALS: Ht 170.2 cm; Wt 77.3 kg
[~2021-01-23 20:28] MED LIST changes: +ONDA4TAB7 PO
[2021-01-23 20:49] VITALS: BP 126/66
--- NOTE | 2021-01-23 21:11 | ED.ADGEN ---
Past Medical History Past Medical History: Anxiety, Depression, Diabetes-Type I, Seizure Additional Past Medical Histor: PCOS Past Surgical History: Cholecystectomy Additional Past Surgical Histo: ovarian cystectomy x2 Smoking Status: Current Every Day Smoker Alcohol Use: None General Adult EDM: Chief Complaint: UPPER EXTREMITY PAIN HPI: HPI: Patient is a 30 year old female who presents the emergency department with complaints of pain to her left upper back that radiates to her left ribs that began today. She denies any recent heavy lifting, falls, or trauma. Patient states that the pain usually will shoot into her left arm. She denies any chest pain, shortness of breath, diaphoresis, cough, body aches, fatigue, or fever. Patient denies any dysuria, hematuria, or increased urinary frequency. She reports that the pain is worse with palpation and movement. She currently rates pain 6 out of 10 on pain scale, she denies any alleviating factors. Patient denies any concerns of . Review of Systems: Review of Systems: Complete ROS is negative unless otherwise noted in HPI. Current Medications: Current Medications Medications (Trade) Dose Ordered Sig/Colleen Start Time Stop Time Status Last Admin Dose Admin Ketorolac Tromethamine (Toradol 30mg Vial) 30 mg 1X ONCE 01/23/21 21:15 01/23/21 21:16 DC 01/23/21 21:33 30 MG Orphenadrine Citrate (Norflex) 60 mg 1X ONCE 01/23/21 21:15 01/23/21 21:16 DC 01/23/21 21:33 60 MG Allergies: Allergies: Allergies Coded Allergies Type Severity Reaction Last Updated Verified coconut Allergy Severe Shortness of Air 11/07/19 Yes mushroom Allergy Severe Shortness of Air 11/07/19 Yes Sulfa (Sulfonamide Antibiotics) Allergy Intermediate Hives 11/07/19 Yes yellow dye Allergy Intermediate Rash 11/07/19 Yes Uncoded Allergies Type Severity Reaction Last Updated Verified SOME BBQ SAUCES Allergy Severe Anaphylaxis 11/07/19 Physical Exam: PE: See Above Constitutional: Well developed, well nourished, no acute distress, non-toxic appearance. [] HENT: Normocephalic, atraumatic, bilateral external ears normal, nose normal. [] Eyes: PERRLA, EOMI, conjunctiva normal, no discharge. [] Neck: Normal range of motion, supple, nontender to palpation, no stridor. [] Cardiovascular:Heart rate regular rhythm Lungs & Thorax: Respirations even and unlabored, no retractions, no respiratory distress Back: Left trapezius muscle tenderness to palpation, no bony tenderness is, no spinal tenderness or deformity Skin: Warm, dry, no erythema, no rash. [] Extremities: No cyanosis, ROM intact, no edema. [] Neurologic: Alert and oriented X 3, normal motor, normal sensory, no focal deficits noted. [] Psychologic: Affect normal, judgement normal, mood normal. [] Current Patient Data: Labs: Laboratory Tests Test 01/23/21 20:46 POC Urine HCG, Qualitative Hcg negative (Negative) Vital Signs: Vital Signs Date Time Temp Pulse Resp B/P (MAP) Pulse Ox O2 Delivery O2 Flow Rate FiO2 01/23/21 20:49 97.9 91 18 126/66 (86) 99 Room Air 97.9 EKG: EKG: [] Heart Score: C/O Chest Pain: No Risk Scores: Score 0 - 3: 2.5% MACE over next 6 weeks - Discharge Home Score 4 - 6: 20.3% MACE over next 6 weeks - Admit for Clinical Observation Score 7 - 10: 72.7% MACE over next 6 weeks - Early Invasive Strategies Radiology/Procedures: Radiology/Procedures: [] Course & Med Decision Making: Course & Med Decision Making Pertinent Labs and Imaging studies reviewed. (See chart for details) [] Dragon Disclaimer: Dragon Disclaimer: This electronic medical record was generated, in whole or in part, using a voice recognition dictation system. Departure Departure Impression: Primary Impression: Trapezius muscle strain Disposition: 01 DC HOME SELF CARE/HOMELESS Condition: STABLE Referrals: THAIS JOSHI MD (PCP) Patient Instructions: Thoracic Strain, [id number] Additional Instructions: Fill the prescription(s) and use as directed. Apply heat or ice for to sore areas as needed for comfort. Activity as tolerated. Follow up with your primary care doctor this week if symptoms persist, return to the ER if symptoms worsen or you develop a fever. Scripts Naproxen (NAPROXEN) 500 Mg Tablet 1 TAB PO BID for pain for 10 Days, #20 TAB 0 Refills Prov: KAHLIL MADRIGAL APRN 01/23/21 Cyclobenzaprine Hcl (CYCLOBENZAPRINE HCL) 10 Mg Tablet 1 TAB PO TID PRN for MUSCLE PAIN for 10 Days, #30 TAB 0 Refills Prov: KAHLIL MADRIGAL APRN 01/23/21 Problem Qualifiers Primary Impression: Trapezius muscle strain Encounter type: initial encounter Laterality: left Qualified Codes: S46.812A - Strain of other muscles, fascia and tendons at shoulder and upper arm level, left arm, initial encounter KAHLIL MADRIGAL APRN Jan 23, 2021 21:10
[2021-01-23] MEDS ORDERED: KETOROLAC 30 MG/ML VIAL. IM ONE (21:15)
[2021-01-23] MEDS ORDERED: ORPHENADRINE CITRATE 60 MG/2 ML VIAL. IM ONE (21:15)
[2021-01-23] MEDS ORDERED: NAPR-514 PO (21:26)
[2021-01-23] MEDS ORDERED: CYCL10TA2 PO (21:26)
== END 2021-01-23 21:53 | disposition home or self-care (01) ==
LOC: ER 20:28
DX: S29.012A Strain of muscle and tendon of back wall of thorax, initial encounter (principal); E10.9 Type 1 diabetes mellitus without complications; F17.200 Nicotine dependence, unspecified, uncomplicated; Z90.49 Acquired absence of other specified parts of digestive tract; Z88.2 Allergy status to sulfonamides; Z91.041 Radiographic dye allergy status; Z91.018 Allergy to other foods; X58.XXXA Exposure to other specified factors, initial encounter; Y93.89 Activity, other specified; Y92.89 Other specified places as the place of occurrence of the external cause; Y99.8 Other external cause status
CPT/HCPCS: 81025; 96372; 99284; J1885; J2360

== ENCOUNTER 2021-02-28 22:26 | Emergency (ER) | payer OTHER ==
[~2021-02-28] VITALS: Ht 170.2 cm; Wt 77.2 kg
[~2021-02-28 22:26] MED LIST changes: +CYCL10TA2 PO; +NAPR-514 PO
[2021-02-28 23:41] LABS: BILIRUBIN,URINE NEGATIVE (NEG); CLARITY,URINE CLEAR; COLOR,URINE YELLOW; NITRITE,URINE NEGATIVE (NEG); PH,URINE 6.5 (<5.0-8.0); PROTEIN,URINE NEGATIVE (NEG-TRACE)
[2021-02-28 23:52] LABS: BACTERIA,URINE 0 /HPF (0-FEW)
[2021-03-01] MEDS ORDERED: KETOROLAC 30 MG/ML VIAL. IM ONE (01:00)
--- NOTE | 2021-03-01 01:43 | RAD ---
Transvaginal ultrasound pelvis HISTORY: Pelvic pain, negative hCG Transvaginal examination of pelvis performed and multiple static images were obtained. The uterus appears normal. Endometrium is homogeneous measures 8 mm in thickness. The right ovary is not seen consistent with the history of previous removal. The left ovary measures 5.3 x 5.0 x 2.6 cm and has normal blood flow. There are 3 small cysts in the left ovary one measuring 2.6 x 2.4 x 2.1 cm and one measuring 2.1 x 1.5 x 2.2 cm and one measuring 2.4 x 2.1 x 2.2 cm. IMPRESSION: 3 small cysts in the left ovary. No suspicious findings. Electronically signed by: Otilio Gomez III, MD (03/01/2021 1:40 AM) [facility]ENTER[facility]SE ROBERTO
--- NOTE | 2021-03-01 02:14 | PHYS DOC ---
Past Medical History Past Medical History: Anxiety, Depression, Diabetes-Type I, Seizure Additional Past Medical Histor: PCOS Past Surgical History: Cholecystectomy Additional Past Surgical Histo: ovarian cystectomy x2 Smoking Status: Current Every Day Smoker Alcohol Use: None General Adult EDM: Chief Complaint: VAGINAL PROBLEM HPI: HPI: Patient is a 30 year old female presents emergency department with vaginal pain and pressure that has been increasing over the past week. Patient describes a 6 out of 10 constant pain and pressure in her vagina that does not radiate to back or abdomen. Patient is unaware of any traumatic events, introduction of any foreign bodies into her vagina, and denies any change in sexual partners or practice that may have contributed to pain. Patient denies any pain with urination, increased frequency or urgency, or change in urine appearance. Patient denies any fever, chills, nausea, vomiting. Patient's last menstrual period was mid January. Patient denies any recent antibiotic use. Review of Systems: Review of Systems: Constitutional: Denies fever or chills Eyes: Denies redness or eye pain HENT: Denies nasal congestion or sore throat Respiratory: Denies cough or shortness of breath Cardiovascular: Denies chest pain or palpitations GI: Denies abdominal pain, nausea, or vomiting : Complains of vaginal pressure and pain, denies dysuria or hematuria, Musculoskeletal: Denies back pain or joint pain Integument: Denies rash or skin lesions Neurologic: Denies headache, focal weakness or sensory changes Complete systems were reviewed and found to be within normal limits, except as documented in this note. Heart Score: C/O Chest Pain: N/A Family History: Family History: No relevant family history Current Medications: Current Medications Medications (Trade) Dose Ordered Sig/Colleen Start Time Stop Time Status Last Admin Dose Admin Ketorolac Tromethamine (Toradol 30mg Vial) 30 mg 1X ONCE 03/01/21 01:00 03/01/21 01:01 DC 03/01/21 01:15 30 MG Allergies: Allergies: Allergies Coded Allergies Type Severity Reaction Last Updated Verified coconut Allergy Severe Shortness of Air 11/07/19 Yes mushroom Allergy Severe Shortness of Air 11/07/19 Yes Sulfa (Sulfonamide Antibiotics) Allergy Intermediate Hives 11/07/19 Yes yellow dye Allergy Intermediate Rash 11/07/19 Yes Uncoded Allergies Type Severity Reaction Last Updated Verified SOME BBQ SAUCES Allergy Severe Anaphylaxis 11/07/19 Physical Exam: PE: Constitutional: Well developed, well nourished, no acute distress, non-toxic appearance HENT: Normocephalic, atraumatic Eyes: conjunctiva normal, no discharge Neck: Normal range of motion, no tenderness, supple Lungs & Thorax: No respiratory distress, equal chest rise and fall Abdomen: Soft, negative McBurney's, negative Rovsing's, lower bilateral abdominal tenderness, no rebound tenderness Skin: Warm, dry, no erythema, no rash Back: No tenderness, no CVA tenderness Extremities: No tenderness, ROM intact, no edema Neurologic: Alert and oriented X 3, normal motor function, normal sensory function, no focal deficits noted Psychologic: Affect normal, judgment normal : Cervical motion tenderness during pelvic exam, adnexal tenderness bilaterally-right greater than left, white mucus discharge from cervical os during speculum exam, normal-appearing external genitalia Pelvic exam performed with Janie MONTANEZ Current Patient Data: Labs: Laboratory Tests Test 02/28/21 23:29 02/28/21 23:34 Urine Collection Type Unknown Urine Color Yellow Urine Clarity Clear Urine pH 6.5 (<5.0-8.0) Urine Specific [place] 1.020 (1.000-1.030) Urine Protein Negative mg/dL (NEG-TRACE) Urine Glucose (UA) Negative mg/dL (NEG) Urine Ketones (Stick) Negative mg/dL (NEG) Urine Blood Negative (NEG) Urine Nitrite Negative (NEG) Urine Bilirubin Negative (NEG) Urine Urobilinogen Dipstick 1.0 mg/dL (0.2 mg/dL) Urine Leukocyte Esterase Small (NEG) Urine RBC 1-2 /HPF (0-2) Urine WBC 1-4 /HPF (0-4) Urine Squamous Epithelial Cells Few /LPF Urine Bacteria 0 /HPF (0-FEW) Urine Mucus Slight /LPF POC Urine HCG, Qualitative Hcg negative (Negative) Vital Signs: Vital Signs Date Time Temp Pulse Resp B/P (MAP) Pulse Ox O2 Delivery O2 Flow Rate FiO2 02/28/21 23:10 78 20 111/64 (80) 99 Room Air EKG: EKG: [] Radiology/Procedures: Radiology/Procedures: PROCEDURE: TRANSVAGINAL Transvaginal ultrasound pelvis HISTORY: Pelvic pain, negative hCG Transvaginal examination of pelvis performed and multiple static images were obtained. The uterus appears normal. Endometrium is homogeneous measures 8 mm in thickness. The right ovary is not seen consistent with the history of previous removal. The left ovary measures 5.3 x 5.0 x 2.6 cm and has normal blood flow. There are 3 small cysts in the left ovary one measuring 2.6 x 2.4 x 2.1 cm and one measuring 2.1 x 1.5 x 2.2 cm and one measuring 2.4 x 2.1 x 2.2 cm. IMPRESSION: 3 small cysts in the left ovary. No suspicious findings. Electronically signed by: Otilio Gomez III, MD (03/01/2021 1:40 AM) [facility] Course & Med Decision Making: Course & Med Decision Making 30-year-old female presents to emergency department with vaginal pain and pressure. She describes this as a 6 out of 10 pain that is constant for the past week. Patient denies any pain with urination, frequency or urgency, trauma, change in sexual practice or partners. Last menstrual period was mid January. Patient was examined in the emergency department, pelvic ultrasound and UA performed Pelvic exam performed showing cervical motion tenderness, and bilateral adnexal tendernes. Pain medication given. Plan to discharge patient with pain medication. Patient stable for discharge with outpatient follow-up with PCP and [facility]. Discussed findings and plan with patient, who acknowledges understanding and agreement. De Disclaimer: De Disclaimer: This electronic medical record was generated, in whole or in part, using a voice recognition dictation system. Departure Departure Impression: Primary Impression: Pelvic pain Additional Impression: Ovarian cyst, left Disposition: 01 DC HOME SELF CARE/HOMELESS Condition: STABLE Referrals: THAIS JOSHI MD (PCP) JOSUÉ CAMPBELL Jr, MD Patient Instructions: Ovarian Cyst, [id number], Pelvic Pain, Female, [id number] Scripts Hydrocodone Bit/Acetaminophen (HYDROCODONE-APAP 5-325 ) 1 Tab Tablet 0.5-1 TAB PO PRN Q6HRS PRN for PAIN, #10 TAB 0 Refills Prov: ALMAZ FREITAS DO 03/01/21 ALMAZ FREITAS DO Mar 01, 2021 02:14
[2021-03-01 02:59] VITALS: BP 91/55
[2021-03-01] MEDS ORDERED: HYDR-2761 PO (03:16)
== END 2021-03-01 04:35 | disposition home or self-care (01) ==
LOC: ER 22:26
DX: N83.292 Other ovarian cyst, left side (principal); R10.2 Pelvic and perineal pain; F41.9 Anxiety disorder, unspecified; F32.9 Major depressive disorder, single episode, unspecified; E10.9 Type 1 diabetes mellitus without complications; F17.200 Nicotine dependence, unspecified, uncomplicated; Z90.49 Acquired absence of other specified parts of digestive tract; Z98.890 Other specified postprocedural states; Z88.2 Allergy status to sulfonamides; Z91.040 Latex allergy status; Z91.018 Allergy to other foods; Z88.8 Allergy status to other drugs, medicaments and biological substances
CPT/HCPCS: 76830; 81001; 81025; 87086; 87491; 87591; 96372; 99285; J1885; Q0111

== ENCOUNTER → 2021-03-12 | Outpatient (CLI) | payer OTHER ==
[2021-03-01 02:59] VITALS: BP 91/55
[~2021-03-12] MED LIST changes: +HYDR-2761 PO
--- NOTE | 2021-03-13 09:00 | KCIC ---
EXAM: Brain MRI without contrast. HISTORY: Seizures. TECHNIQUE: Multiplanar, multisequence magnetic resonance imaging of the brain was performed without c ontrast. COMPARISON: 11/14/2019 FINDINGS: There is no restricted diffusion to suggest acute or subacute infarction. There is no susce ptibility effect to suggest hemorrhage. There is no mass effect or midline shift. There is no hydroce phalus. There has been no stable change in scattered foci of T2/FLAIR hyperintensity within the cereb ral white matter, allowing for differences in technique. There is stable mild cerebellar tonsillar ectopia extending 4 mm inferior to the foramen magnum. This is not clearly within limits for a Chiari I malformation. The orbits are unremarkable. There is mini mal right mastoid fluid. There are normal flow voids within the cerebral vessels. The paranasal sinus es are clear. The hippocampi demonstrate symmetric size and signal. There is asymmetry in the size of the left grea ter than right temporal horns. However, this likely a normal variant rather than due to left medial t emporal lobe volume loss due to mesial temporal sclerosis. There is no heterotopia or malformation of cortical development. No calvarial lesion is seen. IMPRESSION: 1. No acute intracranial finding. 2. Multiple small scattered focal areas of signal change within the cerebral white matter, not apprec iably changed compared to the prior study with allowing for devices in technique. Given the patient a ge, the differential includes changes due to demyelinating disease. The differential also includes et iologies such as vasculitis, prior infection such as Lyme disease, chronic small vessel disease which is advanced for patient age, as well as changes due to epilepsy. 3. No convincing epileptogenic lesion. There is asymmetry in the size of the left greater than right temporal horns. However, the hippocampi demonstrate symmetric size and signal. There is no convincing mesial temporal sclerosis. Electronically signed by: Lydia Estrada MD (03/13/2021 8:58 AM) [id number]
== END ==
LOC: KCIC MRI 13:47
PROVIDERS: ATTEND Nurse Practitioner Family
DX: R56.9 Unspecified convulsions (principal)
CPT/HCPCS: 70551

== ENCOUNTER 2021-03-29 18:43 | Emergency (ER) | payer OTHER ==
[~2021-03-29] VITALS: Ht 170.2 cm; Wt 77.0 kg
[~2021-03-29 18:43] MED LIST changes: -OXYC1TAB22 PO; -VITAMIN D
--- NOTE | 2021-03-29 21:31 | PHYS DOC ---
Past Medical History Past Medical History: Anxiety, Depression, Diabetes-Type I, Seizure Additional Past Medical Histor: PCOS Past Surgical History: Cholecystectomy Additional Past Surgical Histo: ovarian cystectomy x2 Smoking Status: Current Every Day Smoker Alcohol Use: None General Adult EDM: Chief Complaint: ABDOMINAL PAIN HPI: HPI: Patient is a 30-year-old female presenting via POV for left adnexal pain. Re ports she has known left ovarian cyst problems and is followed with [facility] ZONING ASSISTANT for this. She is pending surgical intervention for removal this upcoming . States her ZONING ASSISTANT has prescribed her PERC 7.5 which she has been taking every 4 hours without improvement of pain. States pain has increased in severity and so she called their office, it was advised she presented to our ER for evaluation and discussion on next steps of management. She has had no fever, no trauma, no lightheadedness or dizziness, no vaginal discharge or bleeding Review of Systems: Review of Systems: Fourteen body systems of review of systems have been reviewed. See HPI for pertinent positives and negative responses, other bearden all other systems are negative, non-pertinent or non-contributory Heart Score: C/O Chest Pain: No Risk Factors: Risk Factors: DM, Current or recent (<one month) smoker, HTN, HLP, family history of CAD, obesity. Risk Scores: Score 0 - 3: 2.5% MACE over next 6 weeks - Discharge Home Score 4 - 6: 20.3% MACE over next 6 weeks - Admit for Clinical Observation Score 7 - 10: 72.7% MACE over next 6 weeks - Early Invasive Strategies Allergies: Allergies: Allergies Coded Allergies Type Severity Reaction Last Updated Verified coconut Allergy Severe Shortness of Air 11/07/19 Yes mushroom Allergy Severe Shortness of Air 11/07/19 Yes Sulfa (Sulfonamide Antibiotics) Allergy Intermediate Hives 11/07/19 Yes yellow dye Allergy Intermediate Rash 11/07/19 Yes Uncoded Allergies Type Severity Reaction Last Updated Verified SOME BBQ SAUCES Allergy Severe Anaphylaxis 11/07/19 Physical Exam: PE: Constitutional: Well developed, well nourished, appears discomfort due to pain, non-toxic appearance. HENT: Normocephalic, atraumatic, bilateral external ears normal, oropharynx moist, no oral exudates, nose normal. Eyes: PERRLA, EOMI, conjunctiva normal, no discharge. Neck: Normal range of motion, no tenderness, supple, no stridor. Cardiovascular: Heart rate regular, sinus rhythm, no murmurs rubs or gallops Lungs & Thorax: Bilateral breath sounds clear to auscultation Abdomen: Bowel sounds normal, soft, left adnexal tenderness with palpation with voluntary guarding present, no rebound, no masses, no pulsatile masses. Nonsurgical abdomen, no peritoneal signs Skin: Warm, dry, no erythema, no rash. Back: No tenderness, no CVA tenderness. Extremities: No tenderness, no cyanosis, no clubbing, ROM intact, no edema. Neurologic: Alert and oriented X 3, grossly normal motor & sensory function, no focal deficits noted. Psychologic: Affect normal, judgement normal, mood normal. Current Patient Data: Labs: Laboratory Tests Test 03/29/21 22:23 03/29/21 22:33 Urine Collection Type Unknown Urine Color Yellow Urine Clarity Cloudy Urine pH 5.5 Urine Specific [place] 1.020 Urine Protein Negative mg/dL Urine Glucose (UA) Negative mg/dL Urine Ketones (Stick) Negative mg/dL Urine Blood Negative Urine Nitrite Negative Urine Bilirubin Negative Urine Urobilinogen Dipstick 1.0 mg/dL Urine Leukocyte Esterase Large Urine RBC 0 /HPF Urine WBC 5-10 /HPF Urine Squamous Epithelial Cells Many /LPF Urine Bacteria Moderate /HPF Urine Mucus Marked /LPF Bedside Urine HCG, Qualitative Hcg negative Vital Signs: Vital Signs Date Time Temp Pulse Resp B/P (MAP) Pulse Ox O2 Delivery O2 Flow Rate FiO2 03/29/21 21:29 98.5 91 12 131/73 (92) 100 Room Air 98.5 Vital Signs Date Time Temp Pulse Resp B/P (MAP) Pulse Ox O2 Delivery O2 Flow Rate FiO2 03/29/21 23:30 72 112/63 (79) 100 Room Air 03/29/21 21:29 98.5 12 98.5 EKG: EKG: [] Radiology/Procedures: Radiology/Procedures: EXAM: Pelvic ultrasound HISTORY: Left ovarian cyst, pelvic pain. COMPARISON: 03/21/2021. FINDINGS: Sonographic evaluation of the pelvis was performed transabdominally and transvaginally. The uterus is anteverted and measures 9.4 x 5.4 x 4.3 cm. The endometrial stripe measures 5 mm. No masses are identified. There is no significant free fluid. The right ovary has been resected by history. The left ovary measures 5.8 x 4.2 x 3.8 cm. It is enlarged by 3 cysts or large follicles. The largest measures 4.1 x 3.7 x 2.9 cm, increased from 3.3 cm previously. There is no solid component. 2 other cystic foci measure 1.8 x 1.4 cm and 1.9 x 1.8 cm, respectively. These are stable to mildly decreased. There is perfusion along the interceding septations. There are no suspicious lesions. IMPRESSION: 1. The largest left ovarian cyst or follicle has increased in size and now measures 4.1 x 3.7 cm. 2 other smaller cysts or follicles on the left have slightly decreased in size. No clear solid component is identified. Electronically signed by: Curt Jiménez MD (03/29/2021 11:58 PM) [facility] Course & Med Decision Making: Course & Med Decision Making Discussed with the patient all findings and diagnostic testing. I discussed most likely diagnosis of symptomatic left ovarian cyst. Patient's ZONING ASSISTANT physician contacted and case reviewed, joint decision was made to increase patient's narcotic strength from Percocet 7.5 to Percocet 10. Extremely short term dose of this will be dispensed and risks versus benefits of excepting this new higher strength medication was discussed with patient. I discussed at length the risks of taking such medications at this strength and importance on monitoring symptoms as overuse could ensue respiratory depression and even , she was amenable and accepted this plan of care. Joint decision among all there was no indication for emergent surgical intervention and that she would proceed as usual for surgery this upcoming . I stressed need for close outpatient follow-up to review today's ER visit. Strict return precautions were also dis cussed at length with good understanding by patient. Patient voiced understanding and agreement with the plan. Patient knows to come back for repeat evaluation if concerning signs or symptoms present prior to outpatient follow- up. Hemodynamically stable, ambulatory and well-appearing at time of disposition. Dragon Disclaimer: Dragon Disclaimer: This electronic medical record was generated, in whole or in part, using a voice recognition dictation system. Departure Departure Impression: Primary Impression: Ovarian cyst, left Disposition: HOME / SELF CARE / HOMELESS Condition: STABLE Referrals: THAIS JOSHI MD (PCP) Additional Instructions: As discussed prior to ER departure, your comprehensive ER work-up was nonconcerning for any emergent or surgical findings. With that said, it was disclosed that your known left ovarian cyst has increased in size versus prior exam. Your case was discussed with your ZONING ASSISTANT physician, it was agreed that t here was no need for hospital admission or emergent surgical fixation. Joint decision was made to increase your pain medication which you have been using at home. This comes with increased risk of dependence, respiratory depression, and potentially as discussed with you at length. Proper consumption of said medication is vital and you were educated on this. If you have any questions or concerns please do not hesitate to contact our ER or call your ZONING ASSISTANT to review how best to take this medication as he will be changing to a new dosing schedule at an increased strength. If any concerning signs or symptoms present prior to outpatient follow-up please do not hesitate to come back for repeat evaluation. It was a pleasure to take care of you and I wish you the best going forward Scripts Oxycodone/Apap 10-325 (PERCOCET 10-325 MG TABLET ) 1 Each Tablet 1 TAB PO PRN Q6HRS PRN for PAIN, #10 TAB 0 Refills Prov: VEDA OGDEN DO 03/30/21 VEDA OGDEN DO March 29, 2021 21:31
[2021-03-29 22:39] LABS: BILIRUBIN,URINE NEGATIVE (NEG); CLARITY,URINE CLOUDY; COLOR,URINE YELLOW; NITRITE,URINE NEGATIVE (NEG); PH,URINE 5.5 (<5.0-8.0); PROTEIN,URINE NEGATIVE (NEG-TRACE)
[2021-03-29 22:47] LABS: BACTERIA,URINE MODERATE /HPF (0-FEW); RBC,URINE 0 /HPF (0-2)
[2021-03-29 23:30] VITALS: BP 112/63
--- NOTE | 2021-03-30 | RAD ---
EXAM: Pelvic ultrasound HISTORY: Left ovarian cyst, pelvic pain. COMPARISON: 03/21/2021. FINDINGS: Sonographic evaluation of the pelvis was performed transabdominally and transvaginally. The uterus is anteverted and measures 9.4 x 5.4 x 4.3 cm. The endometrial stripe measures 5 mm. No ma sses are identified. There is no significant free fluid. The right ovary has been resected by history. The left ovary measures 5.8 x 4.2 x 3.8 cm. It is enlar ged by 3 cysts or large follicles. The largest measures 4.1 x 3.7 x 2.9 cm, increased from 3.3 cm pre viously. There is no solid component. 2 other cystic foci measure 1.8 x 1.4 cm and 1.9 x 1.8 cm, resp ectively. These are stable to mildly decreased. There is perfusion along the interceding septations. There are no suspicious lesions. IMPRESSION: 1. The largest left ovarian cyst or follicle has increased in size and now measures 4.1 x 3.7 cm. 2 o ther smaller cysts or follicles on the left have slightly decreased in size. No clear solid component is identified. Electronically signed by: Curt Jiménez MD (03/29/2021 11:58 PM) [facility]
[2021-03-30] MEDS ORDERED: OXYC1TAB22 PO (00:33)
[2021-03-30] MEDS ORDERED: VITAMIN D (15:25)
== END 2021-03-30 00:51 | disposition home or self-care (01) ==
LOC: ER 18:43
DX: N83.202 Unspecified ovarian cyst, left side (principal); E10.9 Type 1 diabetes mellitus without complications; F17.200 Nicotine dependence, unspecified, uncomplicated; Z90.49 Acquired absence of other specified parts of digestive tract; Z88.2 Allergy status to sulfonamides; Z91.041 Radiographic dye allergy status; Z91.018 Allergy to other foods
CPT/HCPCS: 76830; 81001; 81025; 87086; 99284-25; 99285-25

== ENCOUNTER → 2021-03-29 | Outpatient (CLI) | payer OTHER ==
[2021-03-22 07:00] VITALS: BP 112/54
[~2021-03-29] MED LIST changes: +CYAN10002 IM; +OXYC1TAB22 PO; +VITAMIN D
== END ==
LOC: LAB 10:11
PROVIDERS: ATTEND Obstetrics & Gynecology
DX: Z01.812 Encounter for preprocedural laboratory examination (principal); Z20.822 Contact with and (suspected) exposure to COVID-19; N83.292 Other ovarian cyst, left side
CPT/HCPCS: U0003; U0005

== ENCOUNTER 2021-04-01 08:57 | Day surgery (SDC) | payer OTHER ==
[~2021-04-01] VITALS: Ht 170.2 cm; Wt 76.7 kg
[~2021-04-01 08:57] MED LIST changes: +HYDROmorphone 2 MG/ML VIAL IVP PRN; +IV RINGERS,LACTATED 1000ML 1,000 ML IV SCH; +MORPHINE SULFATE 2 MG/ML VIAL. IVP PRN; +OXYC1TAB22 PO; +VITAMIN D; +ceFAZolin SODIUM IV Push 1 GM VIAL. IVP PRN; +fentaNYL PF VIAL 100 MCG/2 ML VIAL IVP PRN
[2021-04-01 09:21] VITALS: BP 108/57
[2021-04-01] MEDS ORDERED: PROPOFOL 10 MG/ML (20ML) VIAL. IV ONE (10:24)
[2021-04-01] MEDS ORDERED: fentaNYL PF VIAL 100 MCG/2 ML VIAL ONE ×2 (10:24→12:24)
[2021-04-01] MEDS ORDERED: ROCURONIUM 50 MG/5 ML VIAL. ONE (10:24)
[2021-04-01] MEDS ORDERED: LIDOCAINE 2% PF 5 ML VIAL. ONE (10:24)
[2021-04-01] MEDS ORDERED: SURGICEL HEMOSTAT 4X8 EACH. ONE (11:00)
[2021-04-01] MEDS ORDERED: BUPIVACAINE-EPI 0.25% 30 ML VIAL KIT. ONE (11:00)
[2021-04-01] MEDS ORDERED: DESFLURANE 31 TO 60 MINUTES IH ONE (11:21)
[2021-04-01] MEDS ORDERED: DEXTROSE 50% 25 GM / 50ML DISP.SYRIN. IV ONE (11:21)
[2021-04-01] MEDS ORDERED: NEOSTIGMINE METHYLSULFATE 5 MG/5 ML SYRINGE. ONE (11:32)
[2021-04-01] MEDS ORDERED: ONDANSETRON PF 4 MG/2 ML VIAL. ONE (11:32)
[2021-04-01] MEDS ORDERED: GLYCOPYRROLATE 1 MG/5 ML VIAL. ONE (11:32)
--- NOTE | 2021-04-01 12:04 | PDOC ---
BRIEF OPERATIVE NOTE Date: April 01, 2021 Pre-Op Diagnosis LANDON Cyst Post-Op Diagnosis Same Procedure Performed [facility] CYstectomy Surgeon Dr. Duenas Storage Manager Deputy Commonwealth'S Attorney: Alice Anesthesia Type: General Blood Loss 5 ml Specimens Obtained LANDON cyst wall Findings LANDON cyst 6 cm size, nml Left fallopian tube, nml uterus Complications none Operative Note see dictation JOSUÉ DUENAS Jr, MD April 01, 2021 12:04
--- NOTE | 2021-04-01 12:05 | DISCH ---
DISCHARGE INSTRUCTIONS Condition on Discharge Condition on Discharge: Stable Activity After Discharge Activity Instructions for Disc: Resume previous activity, Activity as tolerated Lifting Instructions after Dis: No heavy lifting Exercise Instruction after Dis: Progress as tolerated Driving Instructions after Dis: Do not drive today Weight Bearing Status after Di: No restrictions Diet after Discharge Diet after Discharge: Regular Contacting the DRLeo after DC Call your doctor for: Concerns you may have Follow-Up Follow up with: Dr. Duenas in 1 week. JOSUÉ DUENAS Jr, MD April 01, 2021 12:05
[2021-04-01] MEDS ORDERED: KETOROLAC 30 MG/ML VIAL. ONE (12:19)
[2021-04-01] MEDS ORDERED: PROCHLORPERAZINE 10 MG/2 ML VIAL. ONE (12:20)
[2021-04-01] MEDS ORDERED: oxyCODONE/APAP 10/325 1 TAB TABLET ONE (12:20)
[2021-04-01] MEDS: PROCHLORPERAZINE 10 MG/2 ML VIAL. IVP PRN ×2 (12:37→12:48)
[2021-04-01] MEDS: fentaNYL PF VIAL 100 MCG/2 ML VIAL IVP PRN ×2 (12:38→12:49)
--- NOTE | 2021-04-01 12:38 | OP ---
DATE OF SURGERY: 04/01/2021 PREOPERATIVE DIAGNOSIS: Left ovarian cyst. POSTOPERATIVE DIAGNOSIS: Left ovarian cyst. PROCEDURE: Laparoscopic left ovarian cystectomy. SURGEON: Vipul Duenas MD FURNITURE ASSEMBLER: Alice. ANESTHESIA: GETA. ESTIMATED BLOOD LOSS: 5 mL. COMPLICATIONS: None. FINDINGS: Left ovarian cyst 6 cm size, normal left fallopian tube, normal uterus. SUMMARY: A 30-year-old with severe abdominal pain, left ovarian cyst that continued to increase in size, required laparoscopic ovarian cystectomy. She was counseled on the risks, benefits and expectations and voiced a clear understanding to proceed. DESCRIPTION OF PROCEDURE: The patient was taken to the surgery suite and placed in dorsal lithotomy position, she was prepped with Betadine solution for vaginal prep and ChloraPrep for abdominal prep and draped in a sterile fashion. After adequate anesthesia, bivalve speculum was placed vaginally. The anterior lip of the cervix was grasped with a single tooth tenaculum. Uterine acorn manipulator was then placed. The bivalve speculum was removed. Attention was now placed on the abdomen. A small transverse skin incision was made just below the umbilicus with a scalpel. The Veress needle was then placed through the infraumbilical incision site. The abdomen was allowed to insufflate up to 1-1/2 liters of CO2 gas. The Veress needle was then removed. A 5 mm trocar was placed. The scope was positioned. Uterus appeared normal. Left fallopian tube appeared normal. Two additional incisions were made in the left lower quadrant, in which a 5 mm trocar and an 8 mm trocar were placed with the aid of the graspers. The left ovary was better visualized and demonstrate a 6 cm size cyst. The cyst was incised with the EndoShears. The cyst was then drained with the suction beater head. A portion of the cyst wall was excised and removed with the EndoShears. The remainder of the left ovarian cyst wall capsule was fulgurated with Bovie cautery. The area was hemostatic. Suction irrigation was utilized to verify good hemostasis. A small amount of normal saline left in the posterior cul-de-sac. There was no evidence of endometriosis seen. The trocars were then removed under direct visualization. The abdomen was allowed to deflate as much as possible along with mechanical manipulation. The three skin incisions were reapproximated using 4-0 Vicryl suture in subcuticular manner. The 0.25% Marcaine with epinephrine was injected at each incision site. Uterine acorn manipulator and single tooth tenaculum were removed. The patient tolerated the procedure well and was taken to recovery room in stable condition. Sponge and needle counts correct x 3. MICHAEL DR: Eric TID: [id number]
[2021-04-01] MEDS ORDERED: oxyCODONE/APAP 10/325 1 TAB TABLET PO ONE (12:45)
[2021-04-01 13:40] VITALS: BP 105/75
[2021-04-02] MEDS ORDERED: SENN-121 PO (17:01)
[2021-04-02] MEDS ORDERED: OXYC1TAB22 PO (17:01)
--- NOTE | 2021-04-06 08:10 | PATHOLOGY ---
[facility] Accession Number: [id number] . 01 Material submitted: . ovary - LEFT OVARIAN CYST. Modifiers: left . 01 Clinical history: . CYST LEFT OVARY LAP LEFT OVARIAN CYSTECTOMY . 02 Diagnosis: Segment of ovarian tissue, laparoscopic left ovarian cystectomy: - Follicular cyst. . ([facility]:mm; 04/05/2021) [facility] 04/05/2021 1807 Local . 02 Comment: There is no evidence of malignancy. . (M:mm; 04/05/2021) . 02 Electronically signed: . Rusty Coffman MD, Pathologist NPI- [id number] . 01 Gross description: . The specimen is received in formalin, labeled "Maria A Avila, left ovarian cyst wall" is a 4.5 x 0.8 x 0.3 cm sheet like fragment of soft pink-syed tissue. Papillary excrescences or residual ovarian parenchyma are not identified. Entirely submitted A1-A3.([facility]; 04/01/2021) . MICHAEL/MICHAEL 04/01/2021 2341 Local . 02 Pathologist provided ICD-10: N83.02 . 02 CPT . 753998 Specimen Comment: A courtesy copy of this report has been sent to [phone] Specimen Comment: Report sent to Performed at: 01 [facility] [address], [place] [id number] MD Guzman Owusu MD Phone: [phone] Performed at: 02 [facility] [address] [place], [place] [id number] MD Rusty Coffman MD Phone: [phone]
== END 2021-04-01 14:00 | disposition home or self-care (01) ==
LOC: SURG 08:57
PROVIDERS: ATTEND Obstetrics & Gynecology
DX: N83.202 Unspecified ovarian cyst, left side (principal); E66.9 Obesity, unspecified; E11.9 Type 2 diabetes mellitus without complications; E03.9 Hypothyroidism, unspecified; F41.9 Anxiety disorder, unspecified; F32.9 Major depressive disorder, single episode, unspecified; J45.909 Unspecified asthma, uncomplicated; F17.210 Nicotine dependence, cigarettes, uncomplicated; Z90.49 Acquired absence of other specified parts of digestive tract; Z98.890 Other specified postprocedural states; Z79.899 Other long term (current) drug therapy; Z79.84 Long term (current) use of oral hypoglycemic drugs; Z88.2 Allergy status to sulfonamides; Z88.8 Allergy status to other drugs, medicaments and biological substances
CPT/HCPCS: 58662; 81025; A4209; A4930; A6219; J0690; J0780; J2405; J2704; J2710; J3010; J3490; 88305; J1885

== ENCOUNTER 2021-04-02 15:48 | Emergency (ER) | payer OTHER ==
[~2021-04-02] VITALS: Ht 170.2 cm; Wt 77.0 kg
[~2021-04-02 15:48] MED LIST changes: -HYDROmorphone 2 MG/ML VIAL IVP PRN; -IV RINGERS,LACTATED 1000ML 1,000 ML IV SCH; -MORPHINE SULFATE 2 MG/ML VIAL. IVP PRN; -ceFAZolin SODIUM IV Push 1 GM VIAL. IVP PRN; -fentaNYL PF VIAL 100 MCG/2 ML VIAL IVP PRN
--- NOTE | 2021-04-02 16:57 | PHYS DOC ---
Past Medical History Past Medical History: Anxiety, Depression, Diabetes-Type I, Seizure Additional Past Medical Histor: PCOS, OVARIAN CYSTS Past Surgical History: Cholecystectomy, Gastric Bypass Additional Past Surgical Histo: ovarian cystectomy x4 Smoking Status: Current Every Day Smoker Additional Information: 0.5-1 PPD Alcohol Use: None General Adult EDM: Chief Complaint: PAIN CONTROL HPI: HPI: Patient is a 30 year old [f__sex] who presents with [] Review of Systems: Review of Systems: Constitutional: Denies fever or chills Eyes: Denies redness or eye pain HENT: Denies nasal congestion or sore throat Respiratory: Denies cough or shortness of breath Cardiovascular: Denies chest pain or palpitations GI: Denies abdominal pain, nausea, or vomiting : Denies dysuria or hematuria Musculoskeletal: Denies back pain or joint pain Integument: Denies rash or skin lesions Neurologic: Denies headache, focal weakness or sensory changes Complete systems were reviewed and found to be within normal limits, except as documented in this note. Heart Score: C/O Chest Pain: N/A Current Medications: Current Medications Medications (Trade) Dose Ordered Sig/Colleen Start Time Stop Time Status Last Admin Dose Admin Acetaminophen/ Hydrocodone Bitart (Lortab 10/325) 1 tab 1X ONCE 04/02/21 17:00 04/02/21 17:01 Allergies: Allergies: Allergies Coded Allergies Type Severity Reaction Last Updated Verified coconut Allergy Severe Shortness of Air 04/01/21 Yes mushroom Allergy Severe Shortness of Air 04/01/21 Yes Sulfa (Sulfonamide Antibiotics) Allergy Intermediate Hives 04/01/21 Yes yellow dye Allergy Intermediate Anaphylaxis 04/01/21 Yes Uncoded Allergies Type Severity Reaction Last Updated Verified SOME BBQ SAUCES Allergy Severe Anaphylaxis 11/07/19 Physical Exam: PE: Constitutional: Well developed, well nourished, no acute distress, non-toxic appearance HENT: Normocephalic, atraumatic Eyes: PERRL, EOMI, conjunctiva normal, no discharge Neck: Normal range of motion, no tenderness, supple Lungs & Thorax: No respiratory distress, equal chest rise and fall Abdomen: Soft, no tenderness Skin: Warm, dry, no erythema, no rash Back: No tenderness, no CVA tenderness Extremities: No tenderness, ROM intact, no edema Neurologic: Alert and oriented X 3, normal motor function, normal sensory function, no focal deficits noted Psychologic: Affect normal, judgment normal Current Patient Data: Vital Signs: Vital Signs Date Time Temp Pulse Resp B/P (MAP) Pulse Ox O2 Delivery O2 Flow Rate FiO2 04/02/21 16:20 98.7 89 18 120/29 (59) 98 Room Air 98.7 EKG: EKG: [] Radiology/Procedures: Radiology/Procedures: [] Course & Med Decision Making: Course & Med Decision Making Patient stable for discharge with outpatient follow-up with PCP/BLANKET INSPECTOR. Discussed findings and plan with patient and family, who acknowledge understanding and agreement. De Disclaimer: Dragon Disclaimer: This electronic medical record was generated, in whole or in part, using a voice recognition dictation system. Departure Departure Impression: Primary Impression: Postoperative abdominal pain Disposition: HOME / SELF CARE / HOMELESS Condition: STABLE Referrals: THAIS JOSHI MD (PCP) JOSUÉ CAMPBELL Jr, MD Patient Instructions: Medication Refill, Emergency Department, Pain Relief Preoperatively and Postoperatively Scripts Sennosides/Docusate Sodium (Colace 2-in-1 Tablet) 1 Each Tablet 1 TAB PO QHS for Constipation, #20 TAB 0 Refills Take with 12oz glass of water Prov: ALMAZ FREITAS DO 04/02/21 Oxycodone/Apap 10-325 (PERCOCET 10-325 MG TABLET ) 1 Each Tablet 0.5-1 TAB PO PRN Q6HRS PRN for PAIN, #10 TAB 0 Refills Prov: ALMAZ FREITAS DO 04/02/21 ALMAZ FREITAS DO April 02, 2021 16:57
[2021-04-02] MEDS ORDERED: oxyCODONE/APAP 10/325 1 TAB TABLET PO ONE (17:00)
[2021-04-02] MEDS ORDERED: HYDROcodone/APAP 10/325 1 TAB TABLET PO ONE (17:00)
[2021-04-02] MEDS ORDERED: OXYC1TAB22 PO (17:01)
[2021-04-02] MEDS ORDERED: SENN-121 PO (17:01)
[2021-04-02 17:11] VITALS: BP 117/65
== END 2021-04-02 17:12 | disposition home or self-care (01) ==
LOC: ER 15:48
DX: G89.18 Other acute postprocedural pain (principal); R10.9 Unspecified abdominal pain; F17.200 Nicotine dependence, unspecified, uncomplicated; E10.9 Type 1 diabetes mellitus without complications; Z90.49 Acquired absence of other specified parts of digestive tract; Z95.1 Presence of aortocoronary bypass graft; Z88.2 Allergy status to sulfonamides; Z91.041 Radiographic dye allergy status; Z91.018 Allergy to other foods; Z88.8 Allergy status to other drugs, medicaments and biological substances
CPT/HCPCS: 99284

== ENCOUNTER → 2021-09-15 | Outpatient (CLI) | payer OTHER ==
[2021-04-13 15:00] VITALS: BP 98/63
[~2021-09-15] MED LIST changes: +ACET325T21 PO; +CYCL10TA19 PO; -CYCL10TA2 PO; +DOCU50LI12 PO; +HYDR25CA75 PO; +LITH300C PO; +MULT-245 PO; +QUET50TA5 PO; +SENN-121 PO; +VENL150C PO
== END ==
LOC: LAB 08:06
PROVIDERS: ATTEND Obstetrics & Gynecology
DX: Z01.812 Encounter for preprocedural laboratory examination (principal); Z20.822 Contact with and (suspected) exposure to COVID-19
CPT/HCPCS: U0003; U0005

== ENCOUNTER 2021-09-16 07:41 | Day surgery (SDC) | payer OTHER ==
[~2021-09-16] VITALS: Ht 170.2 cm; Wt 76.6 kg
[~2021-09-16 07:41] MED LIST changes: -HYDR25CA75 PO; +HYDROmorphone 2 MG/ML VIAL IVP PRN; +IV RINGERS,LACTATED 1000ML 1,000 ML IV SCH; -LITH300C PO; +PROCHLORPERAZINE 10 MG/2 ML VIAL. IVP PRN; -QUET50TA5 PO; -VENL150C PO; +ceFAZolin SODIUM IV Push 1 GM VIAL. IVP ONE; +ceFAZolin SODIUM IV Push 1 GM VIAL. IVP PRN; +fentaNYL PF VIAL 100 MCG/2 ML VIAL IVP PRN
[2021-09-16] MEDS ORDERED: LITH300C PO (08:16)
[2021-09-16] MEDS ORDERED: VENL150C PO (08:16)
[2021-09-16] MEDS ORDERED: HYDR25CA75 PO (08:16)
[2021-09-16] MEDS ORDERED: QUET50TA5 PO (08:16)
[2021-09-16 08:20] VITALS: BP 117/65
[2021-09-16] MEDS ORDERED: LIDOCAINE 2% PF 5 ML VIAL. ONE (09:40)
[2021-09-16] MEDS ORDERED: DEXAMETHASONE SOD PHOS 4 MG/ML VIAL ONE (09:40)
[2021-09-16] MEDS ORDERED: PROPOFOL 10 MG/ML (20ML) VIAL. IV ONE (09:40)
[2021-09-16] MEDS ORDERED: ONDANSETRON PF 4 MG/2 ML VIAL. ONE (09:40)
[2021-09-16] MEDS ORDERED: fentaNYL PF VIAL 100 MCG/2 ML VIAL ONE ×2 (09:41→10:45)
[2021-09-16] MEDS ORDERED: MIDAZOLAM HCL/PF 2 MG/2 ML VIAL. ONE (10:12)
--- NOTE | 2021-09-16 10:39 | PDOC ---
BRIEF OPERATIVE NOTE Date: Sep 16, 2021 Pre-Op Diagnosis Menorrhagia Post-Op Diagnosis Same Procedure Performed Endometrial Ablation Surgeon Dr. Duenas Anesthesia Type: General Blood Loss Less than 5 ml Specimens Obtained none Findings nml size uterus Complications none Operative Note see dictation JOSUÉ DUENAS Jr, MD Sep 16, 2021 10:39
[2021-09-16] MEDS ORDERED: OXYC1TAB15 PO (10:40)
--- NOTE | 2021-09-16 10:42 | DISCH ---
DISCHARGE INSTRUCTIONS Condition on Discharge Condition on Discharge: Stable Activity After Discharge Activity Instructions for Disc: Activity as tolerated Lifting Instructions after Dis: No heavy lifting Exercise Instruction after Dis: Progress as tolerated Driving Instructions after Dis: Do not drive today Weight Bearing Status after Di: No restrictions Diet after Discharge Diet after Discharge: Regular Checks after Discharge Checks after discharge: Check blood press - daily Contacting the after DC Call your doctor for: Concerns you may have Follow-Up Follow up with: Dr. Duenas in 1 week JOSUÉ DUENAS Jr, MD Sep 16, 2021 10:42
[2021-09-16] MEDS: fentaNYL PF VIAL 100 MCG/2 ML VIAL IVP PRN ×2 (10:48→10:56)
[2021-09-16] MEDS ORDERED: MORPHINE SULFATE 2 MG/ML INJ. ONE (10:56)
[2021-09-16] MEDS: MORPHINE SULFATE 2 MG/ML INJ. IVP PRN ×2 (10:59→11:09)
--- NOTE | 2021-09-16 11:03 | OP ---
DATE OF SURGERY: 09/16/2021 PREOPERATIVE DIAGNOSIS: Menorrhagia. POSTOPERATIVE DIAGNOSIS: Menorrhagia. PROCEDURE: Endometrial ablation. SURGEON: Vipul Dueans MD ANESTHESIA: GETA. ESTIMATED BLOOD LOSS: Less than 5 mL. COMPLICATIONS: None. FINDINGS: Normal size uterus. The patient with history of menorrhagia. SUMMARY: A 31-year-old female with long history of menorrhagia, unresponsive to medical treatment requiring endometrial ablation for surgical management. The patient was counseled on the risks, benefits and expectations and voiced clear understanding to proceed. DESCRIPTION OF PROCEDURE: The patient was taken to surgery suite and placed in dorsal lithotomy position, was prepped with Betadine solution and draped in sterile fashion. After adequate anesthesia, weighted speculum and curved Nebo placed vaginally. Anterior lip of the cervix was grasped with single tooth tenaculum. The cervix was sounded to 6 cm in length. The cervix was then dilated with Hegar dilators up to size 7. The NovaSure device was then placed with a length of 6 cm and width of 3 cm. The device went through a full cycle of about 60 seconds. The NovaSure device was removed. Single tooth tenaculum and weighted speculum were removed. The patient tolerated the procedure well and was taken to recovery room in stable condition. Sponge and needle count were corrected x 3. EROS/LINDY DR: EROS/carmen TID: [id number]
[2021-09-16] MEDS ORDERED: oxyCODONE/APAP 5/325 1 TAB TABLET PO ONE (11:15)
[2021-09-16 11:20] VITALS: BP 115/64
[2021-10-07] MEDS ORDERED: VENL150C PO (13:43)
== END 2021-09-16 11:50 | disposition home or self-care (01) ==
LOC: SURG 07:41
PROVIDERS: ATTEND Obstetrics & Gynecology
DX: N92.0 Excessive and frequent menstruation with regular cycle (principal); J45.909 Unspecified asthma, uncomplicated; E11.9 Type 2 diabetes mellitus without complications; E03.9 Hypothyroidism, unspecified; F41.9 Anxiety disorder, unspecified; F32.9 Major depressive disorder, single episode, unspecified; E66.9 Obesity, unspecified; F17.210 Nicotine dependence, cigarettes, uncomplicated; Z87.440 Personal history of urinary (tract) infections; Z79.899 Other long term (current) drug therapy; Z98.890 Other specified postprocedural states; Z90.49 Acquired absence of other specified parts of digestive tract; Z88.2 Allergy status to sulfonamides; Z88.8 Allergy status to other drugs, medicaments and biological substances
CPT/HCPCS: 58353; 81025; A4930; J0690; J1100; J2250; J2270; J2405; J2704; J3010; A6455

== ENCOUNTER → 2021-10-06 | Outpatient (CLI) | payer OTHER ==
[2021-09-16 11:20] VITALS: BP 115/64
[~2021-10-06] MED LIST changes: +HYDR25CA75 PO; -HYDROmorphone 2 MG/ML VIAL IVP PRN; -IV RINGERS,LACTATED 1000ML 1,000 ML IV SCH; +LITH300C PO; -PROCHLORPERAZINE 10 MG/2 ML VIAL. IVP PRN; +QUET50TA5 PO; +VENL150C PO; -ceFAZolin SODIUM IV Push 1 GM VIAL. IVP ONE; -ceFAZolin SODIUM IV Push 1 GM VIAL. IVP PRN; -fentaNYL PF VIAL 100 MCG/2 ML VIAL IVP PRN
== END ==
LOC: LAB 14:10
PROVIDERS: ATTEND Obstetrics & Gynecology
DX: Z01.812 Encounter for preprocedural laboratory examination (principal); Z20.822 Contact with and (suspected) exposure to COVID-19
CPT/HCPCS: U0003; U0005

== ENCOUNTER 2021-10-08 11:33 | Day surgery (SDC) | payer OTHER ==
[~2021-10-08] VITALS: Ht 170.2 cm; Wt 84.8 kg
[~2021-10-08 11:33] MED LIST changes: +HYDROmorphone 2 MG/ML VIAL IVP PRN; +IV RINGERS,LACTATED 1000ML 1,000 ML IV SCH; +PROCHLORPERAZINE 10 MG/2 ML VIAL. IVP PRN; +ceFAZolin SODIUM IV Push 1 GM VIAL. IVP PRN; +fentaNYL PF VIAL 100 MCG/2 ML VIAL IVP PRN
[2021-10-08 11:59] VITALS: BP 113/56
[2021-10-08] MEDS ORDERED: FAMOTIDINE 20 MG/2 ML VIAL ONE (12:01)
[2021-10-08] MEDS ORDERED: PROPOFOL 10 MG/ML (20ML) VIAL. IV ONE (12:01)
[2021-10-08] MEDS ORDERED: DEXAMETHASONE SOD PHOS 4 MG/ML VIAL ONE (12:01)
[2021-10-08] MEDS ORDERED: ONDANSETRON PF 4 MG/2 ML VIAL. ONE (12:01)
[2021-10-08] MEDS ORDERED: ROCURONIUM 50 MG/5 ML VIAL. ONE (12:01)
[2021-10-08] MEDS ORDERED: BUPIVACAINE-EPI 0.25% 30 ML VIAL KIT. ONE (12:38)
[2021-10-08] MEDS ORDERED: SURGICEL HEMOSTAT 4X8 EACH. ONE (12:38)
[2021-10-08] MEDS ORDERED: SUCCINYLCHOLINE 200 MG/10 ML VIAL. ONE (12:45)
[2021-10-08] MEDS ORDERED: fentaNYL PF VIAL 100 MCG/2 ML VIAL ONE ×2 (12:46→14:11)
[2021-10-08] MEDS ORDERED: MIDAZOLAM HCL/PF 2 MG/2 ML VIAL. ONE (12:49)
[2021-10-08] MEDS ORDERED: NEOSTIGMINE METHYLSULFATE 5 MG/5 ML SYRINGE. ONE (13:29)
[2021-10-08] MEDS ORDERED: GLYCOPYRROLATE 1 MG/5 ML VIAL. ONE (13:29)
[2021-10-08] MEDS ORDERED: KETOROLAC 30 MG/ML VIAL. ONE (13:50)
[2021-10-08] MEDS ORDERED: SEVOFLURANE 61 TO 120 MINUTES. IH ONE (13:55)
--- NOTE | 2021-10-08 13:59 | PDOC4 ---
BRIEF OPERATIVE NOTE Date: Oct 08, 2021 Pre-Op Diagnosis LANDON Cyst Post-Op Diagnosis Same Procedure Performed [facility] LANDON Cystectomy Surgeon Dr. Duenas Machine Biller Engine Repairer: Darci Anesthesia Type: General Blood Loss 5 ml Specimens Obtained LANDON cyst wall Findings Complex LANDON Cyst 6 cm size; nml Left fallopian tube, nml uterus; Right fallopian tube and ovary removed from previous surgery Complications none Operative Note see dictation JOSUÉ DUENAS Jr, MD Oct 08, 2021 13:59
[2021-10-08] MEDS ORDERED: OXYC1TAB15 PO (14:01)
--- NOTE | 2021-10-08 14:02 | DISCH ---
DISCHARGE INSTRUCTIONS Condition on Discharge Condition on Discharge: Stable Activity After Discharge Activity Instructions for Disc: Activity as tolerated Lifting Instructions after Dis: No heavy lifting Exercise Instruction after Dis: Progress as tolerated Driving Instructions after Dis: Do not drive today Weight Bearing Status after Di: As tolerated Diet after Discharge Diet after Discharge: Regular Checks after Discharge Checks after discharge: Check blood press - daily Contacting the after DC Call your doctor for: Concerns you may have Follow-Up Follow up with: Dr. Duenas in 2 weeks JOSUÉ DUENAS Jr, MD Oct 08, 2021 14:02
--- NOTE | 2021-10-08 14:09 | OP ---
DATE OF SURGERY: 10/08/2021 PREOPERATIVE DIAGNOSIS: Left ovarian cyst. POSTOPERATIVE DIAGNOSIS: Left ovarian cyst. PROCEDURE: Laparoscopic left ovarian cystectomy. SURGEON: Ghanshyam Duenas MD COMMUNITY DEVELOPMENT DIRECTOR: Roula. ANESTHESIA: GETA. ESTIMATED BLOOD LOSS: 5 mL. COMPLICATIONS: None. FINDINGS: Complex left ovarian cyst 6 cm size, left fallopian tube, normal size uterus, right fallopian tube and ovary removed from previous surgery. SUMMARY: A 31-year-old female with pelvic pain and 6 cm size left ovarian cyst per CT scan, require surgical management in form of laparoscopic left ovarian cystectomy. She was counseled on the risks, benefits and expectations and voiced clear understanding to proceed. DESCRIPTION OF PROCEDURE: The patient was taken to surgery suite and placed in dorsal lithotomy position, was prepped with Betadine solution for vaginal prep and ChloraPrep for abdominal prep. After adequate anesthesia, bivalve speculum was placed vaginally. Anterior lip of the cervix grasped with single tooth tenaculum. Uterine acorn manipulator was then placed. The bivalve speculum was removed. Attention was now placed on abdomen. Small transverse skin incision was made just below the umbilicus with a scalpel. A Veress needle was then placed through the infraumbilical incision site. The abdomen was allowed to insufflate up to 1-1/2 liters CO2 gas. The Veress needle was then removed. A 5 mm trocar was placed. The scope was positioned. Uterus appeared normal size. Two additional incisions made in the left lower quadrant with a scalpel in which 5 mm trocar and an 8 mm trocar were placed with aid of Nery graspers. The left fallopian tube and ovary were visualized. The left ovary demonstrated a 6 cm size complex cyst with the aid of graspers and the EndoShears. The cyst was excised from the ovary and removed through the 8 mm trocar site. The remaining cyst wall was fulgurated using monopolar cautery and hemostatic. This was verified with suction irrigation. A small amount of normal saline was left in posterior cul-de-sac. The trocars were then removed under direct visualization. The abdomen was allowed to deflate as much as possible along with mechanical manipulation. The three skin incisions were reapproximated using 4-0 Vicryl suture in subcuticular manner. A 0.25% Marcaine with epinephrine was injected at each incision site. Uterine acorn manipulator and single tooth tenaculum were removed. The patient tolerated the procedure well and was taken to recovery room in stable condition. Sponge and needle count correct x 3. YASMANY DR: EROS/carmen TID: [id number]
[2021-10-08] MEDS ORDERED: MORPHINE SULFATE 2 MG/ML INJ. ONE (14:11)
[2021-10-08] MEDS ORDERED: SEVOFLURANE 31 TO 60 MINUTES. IH ONE (14:12)
[2021-10-08] MEDS: MORPHINE SULFATE 2 MG/ML INJ. IVP PRN ×2 (14:17→14:27)
[2021-10-08] MEDS: fentaNYL PF VIAL 100 MCG/2 ML VIAL IVP PRN ×2 (14:17→14:23)
[2021-10-08 14:45] VITALS: BP 104/53
[2021-10-08] MEDS ORDERED: oxyCODONE/APAP 5/325 1 TAB TABLET PO ONE ×2 (14:45)
--- NOTE | 2021-10-13 11:08 | PATHOLOGY ---
[facility] Accession Number: [id number] . 01 Material submitted: . ovary - COMPLEX LEFT OVARIAN CYST. Modifiers: left . 01 Clinical history: . LEFT OVARIAN CYST OPERATIVE LAPAROSCOPY WITH LEFT OVERIAN CYSTECTOMY . 02 Diagnosis: Ovary "complex left ovarian cyst", cystectomy: - Benign ovarian tissue with hemorrhagic corpus luteum, cystic follicle, areas of foreign body granulomatous reaction, and foci of hemosiderin deposition. - Negative for malignancy. (NICHOLEK:keny; 10/12/2021) MBR 10/13/2021 1009 Local . 02 Electronically signed: . Srinivasa Mclain MD, Pathologist NPI- [id number] . 01 Gross description: . The specimen is received in formalin, labeled "Maria A Avila, complex left ovarian cyst". Received are two segments of pale syed to pale hogan tissue measuring 2.7 x 1.5 x 0.8 cm in aggregate dimensions. Sectioning reveals a unilocular cystic structure measuring 0.9 cm that is devoid of content. The specimen is submitted entirely in cassettes A1 and A2. (CAA; 10/11/2021) QAC/QAC 10/11/2021 1237 Local . 02 Pathologist provided ICD-10: N83.202 . 02 CPT . 543298 Specimen Comment: A courtesy copy of this report has been sent to [phone] Specimen Comment: [id number] Specimen Comment: Report sent to / DR JOSHI Performed at: 01 [facility] [address], [place], [place] [id number] MD Guzman Owusu MD Phone: [phone] Performed at: 02 [facility] [address] [place], [place] [id number] MD Rusty Coffman MD Phone: [phone]
== END 2021-10-08 15:30 | disposition home or self-care (01) ==
LOC: SURG 11:33
PROVIDERS: ATTEND Obstetrics & Gynecology
DX: N83.202 Unspecified ovarian cyst, left side (principal); J45.909 Unspecified asthma, uncomplicated; E66.9 Obesity, unspecified; E03.9 Hypothyroidism, unspecified; E11.9 Type 2 diabetes mellitus without complications; F41.9 Anxiety disorder, unspecified; F32.9 Major depressive disorder, single episode, unspecified; Z87.891 Personal history of nicotine dependence; Z79.899 Other long term (current) drug therapy; Z90.49 Acquired absence of other specified parts of digestive tract; Z98.890 Other specified postprocedural states; Z88.2 Allergy status to sulfonamides; Z88.8 Allergy status to other drugs, medicaments and biological substances
CPT/HCPCS: 58662; 81025; A4364; A4930; A6219; J0330; J0690; J0780; J1100; J1885; J2250; J2270; J2405; J2704; J2710; J3010; J3490; A4351; A4452

== ENCOUNTER 2021-10-09 14:25 | Emergency (ER) | payer OTHER ==
[~2021-10-09] VITALS: Ht 170.2 cm; Wt 85.6 kg
[~2021-10-09 14:25] MED LIST changes: -HYDROmorphone 2 MG/ML VIAL IVP PRN; -IV RINGERS,LACTATED 1000ML 1,000 ML IV SCH; -PROCHLORPERAZINE 10 MG/2 ML VIAL. IVP PRN; -ceFAZolin SODIUM IV Push 1 GM VIAL. IVP PRN; -fentaNYL PF VIAL 100 MCG/2 ML VIAL IVP PRN
[2021-10-09] MEDS ORDERED: KETOROLAC 60 MG/2 ML VIAL. IM ONE (14:45)
[2021-10-09] MEDS ORDERED: ONDANSETRON ODT 4 MG TAB.RAPDIS. PO ONE (14:45)
[2021-10-09] MEDS ORDERED: oxyCODONE/APAP 7.5/325 1 TAB TABLET PO ONE (14:45)
[2021-10-09 15:02] LABS: BILIRUBIN,URINE NEGATIVE (NEG); CLARITY,URINE CLOUDY; COLOR,URINE YELLOW; NITRITE,URINE NEGATIVE (NEG); PH,URINE 5.5 (<5.0-8.0); PROTEIN,URINE NEGATIVE (NEG-TRACE); UROBILINOGEN,URINE 0.2 mg/dL (0.2 mg/dL)
[2021-10-09 15:10] LABS: AMORPHOUS SEDIMENT,UR PRESENT /HPF; BACTERIA,URINE FEW /HPF (0-FEW); RBC,URINE 20-40 /HPF (0-2)
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
[2021-10-09 15:37] VITALS: BP 119/69
== END 2021-10-09 15:40 | disposition home or self-care (01) ==
LOC: ER 14:25
DX: R10.32 Left lower quadrant pain (principal); E10.9 Type 1 diabetes mellitus without complications; Z91.041 Radiographic dye allergy status; Z88.2 Allergy status to sulfonamides; Z88.8 Allergy status to other drugs, medicaments and biological substances; Z91.018 Allergy to other foods
CPT/HCPCS: 81001; 81025; 87086; 96372; 99283; J1885

== ENCOUNTER 2021-12-31 15:59 | Emergency (ER) | payer OTHER ==
[~2021-12-31] VITALS: Ht 170.2 cm; Wt 88.2 kg
[2021-12-31 16:01] VITALS: BP 117/62
[2021-12-31] MEDS ORDERED: ORPHENADRINE CITRATE 60 MG/2 ML VIAL. IM ONE (17:15)
[2021-12-31] MEDS ORDERED: KETOROLAC 60 MG/2 ML VIAL. IM ONE (17:15)
[2021-12-31] MEDS ORDERED: ORPH100T PO (17:20)
--- NOTE | 2021-12-31 17:21 | PHYS DOC ---
Past Medical History Past Medical History: Anxiety, Depression, Diabetes-Type I, Ovarian Cyst, Seizure Additional Past Medical Histor: PCOS, SI Past Surgical History: Other Additional Past Surgical Histo: Uterine ablation Smoking Status: Never Smoker Alcohol Use: None General Adult EDM: Chief Complaint: UPPER EXTREMITY PAIN HPI: HPI: Patient is a 31 year old female who presents with left-sided neck pain. Patient states that on Monday, 3 days ago, she woke up with muscle spasm on the left side. She visited her primary care doctor who provided her with "lidocaine injections," which are not controlling her pain. Patient denies radiation of pain, paresthesias, weakness in the left upper extremity. Review of Systems: Review of Systems: Constitutional: Denies fever, chills or generalized weakness Eyes: Denies change in visual acuity, visual field deficits or discharge HENT: Denies ear pain, nasal congestion or sore throat Respiratory: Denies cough or shortness of breath Cardiovascular: Denies chest pain, palpitations or edema GI: Denies abdominal pain, nausea, vomiting, bloody stools or diarrhea : Denies dysuria or hematuria Musculoskeletal: See HPI Integument: Denies rash or other skin lesion Neurologic: See HPI Heart Score: C/O Chest Pain: No Current Medications: Current Medications Medications (Trade) Dose Ordered Sig/Colleen Start Time Stop Time Status Last Admin Dose Admin Ketorolac Tromethamine (Toradol Im) 60 mg 1X ONCE 12/31/21 17:15 12/31/21 17:16 Orphenadrine Citrate (Norflex) 60 mg 1X ONCE 12/31/21 17:15 12/31/21 17:16 Allergies: Allergies: Allergies Coded Allergies Type Severity Reaction Last Updated Verified coconut Allergy Severe Shortness of Air 12/31/21 Yes gabapentin Allergy Severe Shortness of Air 12/31/21 Yes mushroom Allergy Severe Shortness of Air 12/31/21 Yes yellow dye Allergy Severe Anaphylaxis 12/31/21 Yes Sulfa (Sulfonamide Antibiotics) Allergy Intermediate Hives 12/31/21 Yes I S O L A T I O N *CONTACT* Allergy Unknown 10/15/21 Yes Uncoded Allergies Type Severity Reaction Last Updated Verified SOME BBQ SAUCES Allergy Severe Anaphylaxis 11/07/19 Physical Exam: PE: Constitutional: Well developed, well nourished, no acute distress, non-toxic appearance. HENT: Normocephalic, atraumatic, bilateral external ears normal, nose normal. Eyes: EOMI, conjunctiva normal, no discharge. Neck: Normal range of motion, no step-off, no midline tenderness, paraspinal muscle spasm and tenderness appreciated left greater than right, no stridor. Skin: Warm, dry, no erythema, no rash. Back: No step-off, no tenderness. Extremities: Reconciliation Manager strength 5/5 symmetrical bilaterally, radial pulses 2+ and symmetrical, capillary refill less than 2 seconds, no cyanosis, no clubbing, ROM intact, no edema. Neurologic: Alert and oriented x4, no focal deficits noted. Current Patient Data: Vital Signs: Vital Signs Date Time Temp Pulse Resp B/P (MAP) Pulse Ox O2 Delivery O2 Flow Rate FiO2 12/31/21 16:01 98.7 78 20 117/62 (80) 97 Room Air 98.7 Course & Med Decision Making: Course & Med Decision Making Pertinent Labs and Imaging studies reviewed. (See chart for details) [employer] Disclaimer: [employer] Disclaimer: This electronic medical record was generated, in whole or in part, using a voice recognition dictation system. Departure Departure Impression: Primary Impression: Cervical muscle strain Qualified Codes: S16.1XXA - Strain of muscle, fascia and tendon at neck level, initial encounter Additional Impression: Trapezius muscle strain Qualified Codes: S46.812A - Strain of other muscles, fascia and tendons at shoulder and upper arm level, left arm, initial encounter Disposition: HOME / SELF CARE / HOMELESS Condition: IMPROVED Referrals: THAIS JOSHI MD (PCP) Patient Instructions: Muscle Strain, [id number] Additional Instructions: EMERGENCY DEPARTMENT GENERAL DISCHARGE INSTRUCTIONS Thank you for coming to [facility] Emergency Department (ED) today and trusting us with you care. We trust that you had a positive experience in our Emergency Department. If you wish to speak to the department management, you may call the director at . YOUR FOLLOW UP INSTRUCTIONS ARE FOLLOWS: 1. Follow up with your primary care doctor. If you do not have a primary doctor, please ask for a resource list of physicians or clinics that may be able to assist you with follow up care. 2. The emergency provider has interpreted your imaging studies, if any were ordered. The radiology senior it specialist also reviewed them. If there is a change in the findings, you will be notified in 48 hours when at all possible. 3. If a lab test or culture has been done, your results will be reviewed and you will be notified if you need a change in treatment. 4. Follow instructions verbalized to you and refer to the printouts if needed. ADDITIONAL INSTRUCTIONS AND INFORMATION: 1. Your care today has been supervised by a physician who is specially trained in emergency care. Many problems require more than one evaluation for a complete diagnosis and treatment. We recommend that you schedule your follow up appointment as recommended to ensure complete treatment of you illness or injury. If you are unable to obtain follow up care and continue to have a problem, or if your condition worsens, we recommend that you return to the ED. 2. We are not able to safely determine your condition over the phone nor are we able to give sound medical advice over the phone. For these safety reasons, if you call for medical advice we will ask you to come to the ED for further evaluation. 3. If you have any questions regarding these discharge instructions please call the ED at . SAFETY INFORMATION: In the interest of safety, wellness, and injury prevention; we encourage you to wear your seat belt, if you smoke; quite smoking, and we encourage family to use a protective helmet for bicycling and other sporting events that present an increased risk for head injury. IF YOUR SYMPTOMS WORSEN OR NEW SYMPTOMS DEVELOP, OR YOU HAVE CONCERNS ABOUT YOUR CONDITION; OR IF YOUR CONDITION WORSENS WHILE YOU ARE WAITING FOR YOUR FOLLOW UP APPOINTMENT; EITHER CONTACT YOUR PRIMARY CARE DOCTOR, THE PHYSICIAN WHOSE NAME AND NUMBER YOU WERE GIVEN, OR RETURN TO THE ED IMMEDIATELY. Scripts Orphenadrine Citrate (ORPHENADRINE CITRATE) 100 Mg Tablet.er 1 TAB PO BID, #10 TAB Prov: BERTIN JOHNSON 12/31/21 BERTIN JOHNSON Dec 31, 2021 17:20
== END 2021-12-31 17:25 | disposition home or self-care (01) ==
LOC: ER 15:59
DX: S16.1XXA Strain of muscle, fascia and tendon at neck level, initial encounter (principal); S46.812A Strain of other muscles, fascia and tendons at shoulder and upper arm level, left arm, initial encounter; E10.9 Type 1 diabetes mellitus without complications; Z88.2 Allergy status to sulfonamides; Z91.041 Radiographic dye allergy status; Z91.018 Allergy to other foods; Z88.8 Allergy status to other drugs, medicaments and biological substances; X50.9XXA Other and unspecified overexertion or strenuous movements or postures, initial encounter; Y93.89 Activity, other specified; Y92.89 Other specified places as the place of occurrence of the external cause; Y99.8 Other external cause status
CPT/HCPCS: 96372; 99284; J1885; J2360

== ENCOUNTER 2022-02-09 16:03 | Emergency (ER) | payer OTHER ==
[~2022-02-09] VITALS: Ht 170.2 cm; Wt 90.0 kg
[~2022-02-09 16:03] MED LIST changes: +ORPH100T PO
[2022-02-09] MEDS ORDERED: fentaNYL PF VIAL 100 MCG/2 ML VIAL IVP ONE (17:30)
[2022-02-09] MEDS ORDERED: IV NORMAL SALINE 1000ML BAG 1,000 ML IV ONE (17:30)
[2022-02-09] MEDS ORDERED: ONDANSETRON PF 4 MG/2 ML VIAL. IVP ONE (17:30)
[2022-02-09 17:32] LABS: BACTERIA,URINE 0 /HPF (0-FEW)
[2022-02-09 17:42] LABS: BASO # 0.1 x10^3/uL (0.0-0.2); BASO % 1 % (0-3); EOS # 0.2 x10^3/uL (0.0-0.7); EOS % 2 % (0-3); HEMATOCRIT 33.5 % (36.0-47.0); LYMPH # 2.4 x10^3/uL (1.0-4.8); LYMPH % 29 % (24-48); MEAN CORPUSCULAR HEMOGLOBIN 32 pg (25-35); MEAN CORPUSCULAR HGB CONC 33 g/dL (31-37); MEAN CORPUSCULAR VOLUME 96 fL (79-100); MONO # 0.6 x10^3/uL (0.0-1.1); MONO % 7 % (0-9); NEUT # 5.1 x10^3/uL (1.8-7.7); NEUT % 61 % (31-73); PLATELET COUNT 398 x10^3/uL (140-400); RED BLOOD COUNT 3.48 x10^6/uL (3.50-5.40); RED CELL DISTRIBUTION WIDTH 14.1 % (11.5-14.5); WHITE BLOOD COUNT 8.4 x10^3/uL (4.0-11.0)
[2022-02-09 17:50] LABS: CALCIUM 8.9 mg/dL (8.5-10.1); CREATININE 0.6 mg/dL (0.6-1.0); GFR 115.1; POTASSIUM 3.7 mmol/L (3.5-5.1)
[2022-02-09 17:57] LABS: ALBUMIN 3.3 g/dL (3.4-5.0); ALBUMIN/GLOBULIN RATIO 1.1 (1.0-1.7); TOTAL BILIRUBIN 0.2 mg/dL (0.2-1.0); TOTAL PROTEIN 6.3 g/dL (6.4-8.2)
[2022-02-09] MEDS ORDERED: HYDROmorphone 2 MG/ML INJ. IVP ONE (19:00)
--- NOTE | 2022-02-09 19:00 | RAD ---
EXAM: ULTRASOUND PELVIS INDICATION: Reason: Left lower pelvic pain, history of ovarian cysts / Spl. Instructions: / History: . COMPARISON: None available. TECHNIQUE: Transabdominal and transvaginal sonography was performed. FINDINGS: Uterus measures 9.3 x 4.3 x 4.0 cm. Endometrium is 2 mm in thickness. Small amount of fluid noted in the endometrial canal. Right ovary is removed. Left ovary measures 4.9 x 4.7 x 2.4 cm. Simple appearing cysts within the left ovary, largest measuri ng up to 2.9 cm. Vascular flow identified within the ovary. No free fluid identified and pelvis. IMPRESSION: 1. Simple cyst within the left ovary is described above. No evidence for torsion. 2. Trace amount of fluid in the endometrial canal. Correlate with symptomatology. Electronically signed by: Shakir Jon MD (02/09/2022 6:57 PM) ABBEY
[2022-02-09] MEDS ORDERED: OXYC1TAB15 PO (19:56)
--- NOTE | 2022-02-09 19:59 | PHYS DOC ---
Past Medical History Past Medical History: Anxiety, Depression, Diabetes-Type I, Ovarian Cyst, Seizure Additional Past Medical Histor: PCOS (ALMAZ HILL APRN) Past Surgical History: No Surgical History Additional Past Surgical Histo: Uterine ablation (ALMAZ HILL APRN) Smoking Status: Current Every Day Smoker Alcohol Use: None (ALMAZ HILL APRN) General Adult EDM: Chief Complaint: PELVIC PAIN HPI: HPI: Patient is a 31-year-old female presents to the emergency department complaining of left ovarian pain. Patient reports she has a history of PCOS, has a history of ovarian cyst, states this presents much like her ovarian cyst pain. Patient states she called her primary care [facility] Dr. Larson who [facility]. Patient reports some nausea, denies vomiting or diarrhea, denies increased urinary frequency, urinary pressure, urinary burning, hematuria or other dysuria. Patient does report a 10 out of 10 pain. Patient has not taken any pain medications prior to arrival to the ER. Patient denies recent fever or chills, denies vaginal discharge or STI concerns, denies rashes to her vagina. denies other physical complaints or physical concerns. Patient reports her last menstrual cycle was 2 years ago in August when she had her endometrial surgery. (ALMAZ HILL APRN) Review of Systems: Review of Systems: 14 body systems of review of systems have been reviewed. See HPI for pertinent positives and negative responses, otherwise all other systems are negative, nonpertinent or noncontributory. Constitutional: Negative except as outlined in HPI above. Skin: Negative except as outlined in HPI above. Eyes: Negative except as outlined in HPI above. HENT: Negative except as outlined in HPI above. Respiratory: Negative except as outlined in HPI above. Cardiovascular: Negative except as outlined in HPI above. GI: Negative except as outlined in HPI above. : Negative except as outlined in HPI above. Musculoskeletal: Negative except as outlined in HPI above. Integument: Negative except as outlined in HPI above. Neurologic: Negative except as outlined in HPI above. Endocrine: Negative except as outlined in HPI above. Lymphatic: Negative except as outlined in HPI above. Psychiatric: Negative except as outlined in HPI above. (ALMAZ HILL APRN) Heart Score: C/O Chest Pain: No Risk Factors: Risk Factors: DM, Current or recent (<one month) smoker, HTN, HLP, family history of CAD, obesity. Risk Scores: Score 0 - 3: 2.5% MACE over next 6 weeks - Discharge Home Score 4 - 6: 20.3% MACE over next 6 weeks - Admit for Clinical Observation Score 7 - 10: 72.7% MACE over next 6 weeks - Early Invasive Strategies (ALMAZ HILL APRN) Current Medications: Current Medications Medications (Trade) Dose Ordered Sig/Colleen Start Time Stop Time Status Last Admin Dose Admin Fentanyl Citrate (Fentanyl 2ml Vial) 100 mcg 1X ONCE 02/09/22 17:30 02/09/22 17:31 DC 02/09/22 17:46 100 MCG Hydromorphone HCl (Dilaudid) 1 mg 1X ONCE 02/09/22 19:00 02/09/22 19:01 DC Ondansetron HCl (Zofran) 4 mg 1X ONCE 02/09/22 17:30 02/09/22 17:31 DC 02/09/22 17:45 4 MG Sodium Chloride 1,000 ml @ 1,000 mls/hr 1X ONCE 02/09/22 17:30 02/09/22 18:29 DC 02/09/22 17:45 1,000 MLS/HR (ALMAZ HILL APRN) Allergies: Allergies: Allergies Coded Allergies Type Severity Reaction Last Updated Verified coconut Allergy Severe Shortness of Air 02/09/22 Yes gabapentin Allergy Severe Shortness of Air 02/09/22 Yes mushroom Allergy Severe Shortness of Air 02/09/22 Yes yellow dye Allergy Severe Anaphylaxis 02/09/22 Yes Sulfa (Sulfonamide Antibiotics) Allergy Intermediate Hives 02/09/22 Yes I S O L A T I O N *CONTACT* Allergy Unknown 02/09/22 Yes Uncoded Allergies Type Severity Reaction Last Updated Verified SOME BBQ SAUCES Allergy Severe Anaphylaxis 11/07/19 (ALMAZ HILL APRN) Physical Exam: PE: Constitutional: Well developed, well nourished, non-toxic appearance. 31-year-old female writhing around the bed holding abdomen. HENT: Normocephalic, atraumatic. Eyes: Conjunctiva normal, no discharge. Neck: Normal range of motion, no stridor. Cardiovascular: No cyanosis appreciated, distal cap refill less than 2 seconds. Lungs & Thorax: Patient is in no respiratory distress, no audible adventitious lung sounds appreciated. Abdomen: No visual skin discoloration appreciated, pain to palpation left lower quadrant, no masses, no megaly, there is no rebound tenderness appreciated, no Otoole sign, negative psoas sign, negative McBurney's point tenderness. Skin: Warm, dry, no erythema, no rash. Back: No tenderness, no deformities. Extremities: No tenderness, no cyanosis, no clubbing, ROM intact, no edema. Neurologic: Alert and oriented X 3, normal motor function, normal sensory function, no focal deficits noted. Psychologic: Affect normal, judgement normal, mood normal. (ALMAZ HILL APRN) Current Patient Data: Labs: Laboratory Tests Test 02/09/22 16:31 02/09/22 16:34 02/09/22 17:36 Urine Collection Type Unknown Urine Color (Auto) Yellow Urine Turbidity Clear Urine pH (Auto) 5.5 (<5.0-8.0) Urine Specific [place] 1.026 (1.000-1.030) Urine Protein (Auto) Negative mg/dL (Negative) Urine Glucose (Auto)(UA) Negative mg/dL (Negative) Urine Ketones (Auto) Negative mg/dL (Negative) Urine Blood (Auto) Negative (Negative) Urine Nitrite Negative (Negative) Urine Bilirubin (Auto) Negative (Negative) Urine Urobilinogen (Auto) Normal mg/dL (Normal) Urine Leukocyte Esterase (Auto) Negative (Negative) Urine RBC 1-2 /HPF (0-2) Urine WBC 1-4 /HPF (0-4) Urine Squamous Epithelial Cells Mod /LPF Urine Bacteria 0 /HPF (0-FEW) Urine Mucus Marked /LPF POC Urine HCG, Qualitative Hcg negative (Negative) White Blood Count 8.4 x10^3/uL (4.0-11.0) Red Blood Count 3.48 x10^6/uL (3.50-5.40) L Hemoglobin 11.0 g/dL (12.0-15.5) L Hematocrit 33.5 % (36.0-47.0) L Mean Corpuscular Volume 96 fL (79-100) Mean Corpuscular Hemoglobin 32 pg (25-35) Mean Corpuscular Hemoglobin Concent 33 g/dL (31-37) Red Cell Distribution Width 14.1 % (11.5-14.5) Platelet Count 398 x10^3/uL (140-400) Neutrophils (%) (Auto) 61 % (31-73) Lymphocytes (%) (Auto) 29 % (24-48) Monocytes (%) (Auto) 7 % (0-9) Eosinophils (%) (Auto) 2 % (0-3) Basophils (%) (Auto) 1 % (0-3) Neutrophils # (Auto) 5.1 x10^3/uL (1.8-7.7) Lymphocytes # (Auto) 2.4 x10^3/uL (1.0-4.8) Monocytes # (Auto) 0.6 x10^3/uL (0.0-1.1) Eosinophils # (Auto) 0.2 x10^3/uL (0.0-0.7) Basophils # (Auto) 0.1 x10^3/uL (0.0-0.2) Sodium Level 145 mmol/L (136-145) Potassium Level 3.7 mmol/L (3.5-5.1) Chloride Level 108 mmol/L (98-107) H Carbon Dioxide Level 28 mmol/L (21-32) Anion Gap 9 (6-14) Blood Urea Nitrogen 11 mg/dL (7-20) Creatinine 0.6 mg/dL (0.6-1.0) Estimated GFR (Cockcroft-Gault) 115.1 BUN/Creatinine Ratio 18 (6-20) Glucose Level 94 mg/dL (70-99) Calcium Level 8.9 mg/dL (8.5-10.1) Total Bilirubin 0.2 mg/dL (0.2-1.0) Aspartate Amino Transferase (AST) 14 U/L (15-37) L Alanine Aminotransferase (ALT) 22 U/L (14-59) Alkaline Phosphatase 93 U/L (46-116) Total Protein 6.3 g/dL (6.4-8.2) L Albumin 3.3 g/dL (3.4-5.0) L Albumin/Globulin Ratio 1.1 (1.0-1.7) Lipase 58 U/L (73-393) L Laboratory Tests 02/09/22 17:36 Laboratory Tests 02/09/22 17:36 Vital Signs: Vital Signs Date Time Temp Pulse Resp B/P (MAP) Pulse Ox O2 Delivery O2 Flow Rate FiO2 02/09/22 19:26 66 16 02/09/22 18:48 100 02/09/22 17:46 Room Air 02/09/22 16:15 98.6 122/63 (82) 98.6 (ALMAZ HILL APRN) EKG: EKG: [] (ALMAZ HILL APRN) Radiology/Procedures: Radiology/Procedures: REASON: Left lower pelvic pain, history of ovarian cysts PROCEDURE: PELVIS W/TV EXAM: ULTRASOUND PELVIS INDICATION: Reason: Left lower pelvic pain, history of ovarian cysts / Spl. Instructions: / History: . COMPARISON: None available. TECHNIQUE: Transabdominal and transvaginal sonography was performed. FINDINGS: Uterus measures 9.3 x 4.3 x 4.0 cm. Endometrium is 2 mm in thickness. Small amount of fluid noted in the endometrial canal. Right ovary is removed. Left ovary measures 4.9 x 4.7 x 2.4 cm. Simple appearing cysts within the left ovary, largest measuring up to 2.9 cm. Vascular flow identified within the ovary. No free fluid identified and pelvis. IMPRESSION: 1. Simple cyst within the left ovary is described above. No evidence for torsion. 2. Trace amount of fluid in the endometrial canal. Correlate with symptomatology. Electronically signed by: Shakir Jon MD (02/09/2022 6:57 PM) [facility] (ALMAZ HILL APRN) Course & Med Decision Making: Course & Med Decision Making Pertinent Labs and Imaging studies reviewed. (See chart for details) 31-year-old female, vital signs reviewed, presents to the emergency department concerning left ovarian cyst pain. Patient's physical examination consistent for ovarian cyst versus other acute abdominal process, will order CBC, CMP, urinalysis assay, urine test, IV, saline, nausea medication, pain medication, ultrasound of pelvis to rule out torsion. Labs are unremarkable, the patient's urine is not infected, she is not , pelvic ultrasound reveals cysts of the left ovary, there is no torsion, no other abnormality. Upon reevaluation of the patient, patient appears more comfortable, states her pain is gone from a 9 down to a 2 or 3. Discussed with patient strict follow-up with her [facility] doctor Cecil this week, return to the emergency department precautions or concerns were reviewed, patient gave verbal understanding of and is amenable to ED discharge planning. Discussed with the patient all findings and diagnostic testing as well as the need to follow-up with their primary care provider for further evaluation and treatment or return to the ED if any new or worsening symptoms. Strict return precautions were also discussed at length, the patient voiced understanding and agreement with the discharge planning. The patient was nontoxic in appearance, in no apparent distress, and hemodynamically stable at the time of disposition. (ALMAZ HILL APRN) Course & Med Decision Making Patients Care and treatment plan provided by ER Nurse Practitioner. I was available for consult. Patient's chart reviewed. (ADALID FLORES DO) Dragon Disclaimer: De Disclaimer: This electronic medical record was generated, in whole or in part, using a voice recognition dictation system. (ALMAZ HILL APRN) Departure Departure Impression: Primary Impression: Ovarian cyst, left Additional Impression: Pelvic pain Disposition: HOME / SELF CARE / HOMELESS Condition: GOOD Referrals: NON,STAFF (PCP) JOSUÉ DUENAS Jr., MD Patient Instructions: Ovarian Cyst Additional Instructions: You were seen today in the emergency department for ovarian cyst pain. The pelvic ultrasound did reveal a variant cyst of the left. As we discussed please follow-up with Dr. Duenas this week to discuss your emergency department visit today. I am prescribing you pain medication for any returning pain. Return to the emergency department for worsening symptoms or other concerns. Thank you for visiting our Emergency Department. It was a pleasure taking care of you today in the emergency department and we appreciate you trusting us with your care. If any additional problems come up don't hesitate to return to visit us. Please follow up with your primary care provider so they can plan additional care if needed and know about the problem that you had. If symptoms worsen come back to the Emergency Department. Any concerning symptoms that start such as chest pain, shortness of air, weakness or numbness on one side of the body, running high fevers or any other concerning symptoms return to the ER. Scripts Oxycodone/Apap 5-325 (PERCOCET 5-325 MG TABLET ) 1 Each Tablet 1 TAB PO PRN BID PRN for SEVERE PAIN 7-10 MDD 2 Tablet(s) for 5 Days, #10 TAB 0 Refills Prov: ALMAZ HILL APRN 02/09/22 ALMAZ HILL APRN Feb 09, 2022 19:59 ADALID FLORES DO Feb 10, 2022 03:57
[2022-02-09 20:04] VITALS: BP 101/56
== END 2022-02-09 20:05 | disposition home or self-care (01) ==
LOC: ER 16:03
DX: N83.202 Unspecified ovarian cyst, left side (principal); E10.9 Type 1 diabetes mellitus without complications; F17.200 Nicotine dependence, unspecified, uncomplicated; Z91.018 Allergy to other foods; Z91.041 Radiographic dye allergy status; Z88.2 Allergy status to sulfonamides; Z88.8 Allergy status to other drugs, medicaments and biological substances
CPT/HCPCS: 36415; 76830; 76856; 80053; 81001; 81025; 83690; 85025; 96361; 96374; 96375; 99285; J2405; J3010; J7030

== ENCOUNTER 2022-03-15 09:06 | Emergency (ER) | payer OTHER ==
[~2022-03-15] VITALS: Ht 170.2 cm; Wt 91.4 kg
[~2022-03-15 09:06] MED LIST changes: -VENL150C PO; +VENL150C3 PO
[2022-03-15 10:16] LABS: BACTERIA,URINE MODERATE /HPF (0-FEW); RBC,URINE 0 /HPF (0-2); WBC,URINE 20-40 /HPF (0-4)
[2022-03-15 10:28] VITALS: BP 100/55
[2022-03-15] MEDS ORDERED: ONDANSETRON ODT 4 MG TAB.RAPDIS. PO ONE (10:30)
[2022-03-15] MEDS ORDERED: cefTRIAXone IM 1 GM VIAL IM ONE (10:45)
[2022-03-15] MEDS ORDERED: KETOROLAC 30 MG/ML VIAL. IM ONE (11:15)
[2022-03-15] MEDS ORDERED: ONDA4TAB12 PO (11:50)
--- NOTE | 2022-03-15 11:51 | PHYS DOC ---
Past Medical History Past Medical History: Anxiety, Depression, Diabetes-Type I, Ovarian Cyst Additional Past Medical Histor: PCOS, psychogenic seizure (conversion disorder) Additional Past Surgical Histo: Uterine ablation Smoking Status: Never Smoker Alcohol Use: None Drug Use: Marijuana General Adult EDM: Chief Complaint: ABDOMINAL PAIN HPI: HPI: Patient is a 31 year old female who presents with low abdominal pain began Monday. Patient reports associated nausea and vomiting. She denies hematuria, vaginal bleeding or discharge. Review of Systems: Review of Systems: ROS negative or noncontributory except as mentioned in HPI. Heart Score: C/O Chest Pain: N/A Current Medications: Current Medications Medications (Trade) Dose Ordered Sig/Colleen Start Time Stop Time Status Last Admin Dose Admin Ceftriaxone Sodium (Rocephin Im) 1 gm 1X ONCE 03/15/22 10:45 03/15/22 10:46 DC 03/15/22 10:58 1 GM Ketorolac Tromethamine (Toradol 30mg Vial) 30 mg 1X ONCE 03/15/22 11:15 03/15/22 11:16 DC 03/15/22 10:59 30 MG Ondansetron HCl (Zofran Odt) 4 mg 1X ONCE 03/15/22 10:30 03/15/22 10:31 DC 03/15/22 10:26 4 MG Allergies: Allergies: Allergies Coded Allergies Type Severity Reaction Last Updated Verified coconut Allergy Severe Shortness of Air 03/15/22 Yes gabapentin Allergy Severe Shortness of Air 03/15/22 Yes mushroom Allergy Severe Shortness of Air 03/15/22 Yes yellow dye Allergy Severe Anaphylaxis 03/15/22 Yes Sulfa (Sulfonamide Antibiotics) Allergy Intermediate Hives 03/15/22 Yes I S O L A T I O N *CONTACT* Allergy Unknown 03/15/22 Yes Uncoded Allergies Type Severity Reaction Last Updated Verified SOME BBQ SAUCES Allergy Severe Anaphylaxis 11/07/19 Physical Exam: PE: Constitutional: Obese, no acute distress, non-toxic appearance. HENT: Normocephalic, atraumatic, bilateral external ears normal, nose normal. Eyes: EOMI, conjunctiva normal, no discharge. Neck: Normal range of motion, no stridor. Lungs & Thorax: Equal thoracic expansion, no increased work of breathing. Abdomen: Bowel sounds normal, soft, mild suprapubic tenderness without rebound or guarding, no masses, no pulsatile masses. Skin: Warm, dry, no erythema, no rash. Back: No tenderness, no CVA tenderness. Neurologic: Alert and oriented x4, normal motor function, normal sensory function, no focal deficits noted. Current Patient Data: Labs: Laboratory Tests Test 03/15/22 09:25 03/15/22 09:32 Urine Collection Type Unknown Urine Color (Auto) Light orange Urine Turbidity Turbid Urine pH (Auto) 6.0 (<5.0-8.0) Urine Specific [place] 1.022 (1.000-1.030) Urine Protein (Auto) 30 mg/dL (Negative) Urine Glucose (Auto)(UA) Negative mg/dL (Negative) Urine Ketones (Auto) Negative mg/dL (Negative) Urine Blood (Auto) Negative (Negative) Urine Nitrite Negative (Negative) Urine Bilirubin (Auto) Negative (Negative) Urine Urobilinogen (Auto) Normal mg/dL (Normal) Urine Leukocyte Esterase (Auto) Large (Negative) Urine RBC 0 /HPF (0-2) Urine WBC 20-40 /HPF (0-4) Urine Squamous Epithelial Cells Many /LPF Urine Bacteria Moderate /HPF (0-FEW) POC Urine HCG, Qualitative Hcg negative (Negative) Vital Signs: Vital Signs Date Time Temp Pulse Resp B/P (MAP) Pulse Ox O2 Delivery O2 Flow Rate FiO2 03/15/22 10:28 72 18 100/55 (70) 98 03/15/22 09:21 98.6 75 18 104/61 (75) 98 Room Air 98.6 Course & Med Decision Making: Course & Med Decision Making Pertinent Labs and Imaging studies reviewed. (See chart for details) Is a 31-year-old female who presents with lower abdominal pain with associated nausea and vomiting. Urinalysis obtained and reveals UTI. Patient treated with Toradol, Rocephin, Zofran. Patient reports she feels improved. She was provided electronic prescription for Zofran should nausea persist. Return precautions are provided. Patient understands and is agreeable to discharge plan. Dragon Disclaimer: Dragon Disclaimer: This electronic medical record was generated, in whole or in part, using a voice recognition dictation system. Departure Departure Impression: Primary Impression: UTI (urinary tract infection) Qualified Codes: N30.00 - Acute cystitis without hematuria Additional Impression: Nausea and vomiting Qualified Codes: R11.2 - Nausea with vomiting, unspecified Disposition: HOME / SELF CARE / HOMELESS Condition: IMPROVED Referrals: NON,STAFF (PCP) Patient Instructions: Urinary Tract Infection, [id number] Additional Instructions: EMERGENCY DEPARTMENT GENERAL DISCHARGE INSTRUCTIONS Thank you for coming to [facility] Emergency Department (ED) today and trusting us with you care. We trust that you had a positive experience in our Emergency Department. If you wish to speak to the department management, you may call the director at . YOUR FOLLOW UP INSTRUCTIONS ARE FOLLOWS: 1. Follow up with your primary care doctor. If you do not have a primary doctor, please ask for a resource list of physicians or clinics that may be able to assist you with follow up care. 2. The emergency provider has interpreted your imaging studies, if any were ordered. The radiology regulatory specialist also reviewed them. If there is a change in the findings, you will be notified in 48 hours when at all possible. 3. If a lab test or culture has been done, your results will be reviewed and you will be notified if you need a change in treatment. 4. Follow instructions verbalized to you and refer to the printouts if needed. ADDITIONAL INSTRUCTIONS AND INFORMATION: 1. Your care today has been supervised by a physician who is specially trained in emergency care. Many problems require more than one evaluation for a complete diagnosis and treatment. We recommend that you schedule your follow up appointment as recommended to ensure complete treatment of you illness or injury. If you are unable to obtain follow up care and continue to have a problem, or if your condition worsens, we recommend that you return to the ED. 2. We are not able to safely determine your condition over the phone nor are we able to give sound medical advice over the phone. For these safety reasons, if you call for medical advice we will ask you to come to the ED for further evaluation. 3. If you have any questions regarding these discharge instructions please call the ED at . SAFETY INFORMATION: In the interest of safety, wellness, and injury prevention; we encourage you to wear your seat belt, if you smoke; quite smoking, and we encourage family to use a protective helmet for bicycling and other sporting events that present an increased risk for head injury. IF YOUR SYMPTOMS WORSEN OR NEW SYMPTOMS DEVELOP, OR YOU HAVE CONCERNS ABOUT YOUR CONDITION; OR IF YOUR CONDITION WORSENS WHILE YOU ARE WAITING FOR YOUR FOLLOW UP APPOINTMENT; EITHER CONTACT YOUR PRIMARY CARE DOCTOR, THE PHYSICIAN WHOSE NAME AND NUMBER YOU WERE GIVEN, OR RETURN TO THE ED IMMEDIATELY. Scripts Ondansetron (ONDANSETRON ODT) 4 Mg Tab.rapdis 1 TAB PO PRN Q6-8HRS, #20 TAB Prov: BERTIN JOHNSON 03/15/22 BERTIN JOHNSON Mar 15, 2022 11:51
== END 2022-03-15 11:58 | disposition home or self-care (01) ==
LOC: ER 09:06
DX: N30.00 Acute cystitis without hematuria (principal); R11.2 Nausea with vomiting, unspecified; E10.9 Type 1 diabetes mellitus without complications; Z88.2 Allergy status to sulfonamides; Z91.041 Radiographic dye allergy status; Z91.018 Allergy to other foods; Z88.8 Allergy status to other drugs, medicaments and biological substances
CPT/HCPCS: 81001; 81025; 87086; 96372; 99284; J0696; J1885